=== PATIENT | male | born 1965 | race Caucasian/White ===

== ENCOUNTER 2016-05-06 04:21 | Emergency (ER) | payer MEDICARE ==
[2016-05-06 04:35] VITALS: PULSE 80
[2016-05-06] MEDS ORDERED: XYLOCAINE 1% HCL 20 ML MDV IJ ONE (04:40)
[2016-05-06] MEDS ORDERED: BACIGUENT PACKET TP ONE (04:40)
[2016-05-06] MEDS ORDERED: Zithromax 250 MG TABLET PO ONE (04:41)
[2016-05-06] MEDS ORDERED: BACIGUENT PACKET ONE (04:56)
[2016-05-06] MEDS ORDERED: Zithromax 250 MG TABLET ONE (04:56)
[2016-05-06] MEDS ORDERED: XYLOCAINE 1% HCL 20 ML MDV ONE (04:57)
[2016-05-06 05:32] VITALS: BP 146/102
--- NOTE | 2016-05-06 05:33 | ERPHSYRPT ---
- History of Present Illness Time Seen by Provider: 05/06/16 04:38 Source: patient Exam Limitations: no limitations Patient Subjective Stated Complaint: PT STS DRINKING ALCOHOL TONIGHT. PT STS STOOD UP FROM FLOOR WHERE HE WAS "EPOXYING SOME GIRLS GLASSES" STS HE STRUCK HIS HEAD ON FILING CABINET. STS HE CUT HIS LT EARLOBE ON FILING CABINET. DENIES LOC. Triage Nursing Assessment: PT ALERT, ORIENTED, ANSWERS ALL QUESTIONS APPROPRIATELY. SKIN P/W/D, RESPS NON-LABORED. PT AMBULATORY, STEADY GAIT NOTED. LACERATION NOTED TO LT EARLOBE WITH ACTIVE OOZING BLOOD NOTED. Physician History: ABOUT 45 MINUTES AGO PT STOOD UP AND CUT HIS LEFT EARLOBE ON A FILING CABINET; DENIES LOC, VOMITING, HEADACHE, CHEST PAIN, BACK PAIN, NECK PAIN, ABDOMINAL PAIN , TINGLING/NUMBNESS, WEAKNESS. LAST TETANUS IS WITHIN 5 YEARS. Allergies/Adverse Reactions: Penicillins Allergy (Verified 05/06/16 04:24) Home Medications: Aspirin [Analgesic] 325 mg PO DAILY 11/15/11 [History] Carvedilol 3.125 mg [Coreg 3.125 MG] 6.25 mg PO BID 11/15/11 [History] Clopidogrel Bisulfate 75 mg [PLAVIX 75 MG Tablet] 75 mg PO DAILY 11/15/11 [History] Lisinopril 20 mg PO DAILY 11/15/11 [History] Atorvastatin Calcium 20 mg PO HS 05/31/13 [History] Hx Tetanus, Diphtheria Vaccination/Date Given: Yes (unknown) Hx Influenza Vaccination/Date Given: No Hx Pneumococcal Vaccination/Date Given: No - Review of Systems Ears, Nose, & Throat: Other (LACERATION TO LEFT EARLOBE) All Other Systems: Reviewed and Negative - Past Medical History Pertinent Past Medical History: Yes Neurological History: No Pertinent History ENT History: No Pertinent History Cardiac History: Coronary Artery Disease, High Cholesterol, Hypertension Respiratory History: No Pertinent History Endocrine Medical History: No Pertinent History Musculoskeletal History: No Pertinent History GI Medical History: No Pertinent History History: No Pertinent History Psycho-Social History: Depression Male Reproductive Disorders: No Pertinent History Other Medical History: AICD. SUDDEN SYNDROME - Past Surgical History Past Surgical History: Yes Neuro Surgical History: No Pertinent History Cardiac: CABG, Cardiac Catheterization, Cardiac Stent, Internal Defibrillator, Pacemaker Respiratory: No Pertinent History Gastrointestinal: Hernia Repair Genitourinary: No Pertinent History Musculoskeletal: No Pertinent History Male Surgical History: No Pertinent History Other Surgical History: ATRIAL PACEMAKER/DEFIBRILLATOR - Social History Smoking Status: Current every day smoker How long have you smoked: 2 YEARS Exposure to second hand smoke: No Drug Use: none Patient Lives Alone: Yes - Nursing Vital Signs Nursing Vital Signs: Initial Vital Signs Temperature 97.6 F Temperature Source Oral Pulse Rate 80 Respiratory Rate 16 Blood Pressure [Right Arm] 135/77 Pain Intensity 0 - Physical Exam General Appearance: alert Eye Exam: PERRL/EOMI, eyes nml inspection Ears, Nose, Throat Exam: TMs normal, pharynx normal, moist mucous membranes, other (LEFT EARLOBE HAS A 3 CM LACERATION) Neck Exam: normal inspection, non-tender, full range of motion Respiratory Exam: lungs clear Cardiovascular Exam: normal heart sounds, normal peripheral pulses Gastrointestinal/Abdomen Exam: soft, normal bowel sounds Back Exam: normal range of motion Extremity Exam: normal inspection, No pedal edema Neurologic Exam: alert, cooperative SpO2 Interpretation: normal SpO2: 96 Oxygen Delivery: Room Air Procedures - Laceration/Wound Repair Left Ear Wound Location: Left (EARLOBE) Wound Length (cm): 3 Wound's Depth, Shape: linear (THROUGH & THROUGH) Wound Explored: clean Irrigated: Yes Hibiclens Prep: Yes Anesthesia: 1% Lidocaine Volume Anesthetic (ccs): 1.5 Wound Repaired With: sutures Suture Size/Type: 5-0, prolene Number of Sutures: 14 Layer Closure?: No Sterile Dressing Applied?: Yes - Course Nursing assessment & vital signs reviewed: Yes Ordered Tests: Active Orders 24 hr Category Date Time Status Prepare for Sutures STAT Care 05/06/16 04:40 Active Sutures STAT Care 05/06/16 04:41 Active Wound Care STAT Care 05/06/16 04:40 Active Medication Summary Discontinued Medications Generic Name Dose Route Start Last Admin Trade Name Sanjeev PRN Reason Stop Dose Admin Azithromycin 500 mg 05/06/16 04:41 05/06/16 04:59 Zithromax 250 Mg Tablet PO 05/06/16 04:42 500 mg STAT ONE Administration Azithromycin Confirm 05/06/16 04:56 Zithromax 250 Mg Tablet Administered 05/06/16 04:57 Dose 500 mg .ROUTE .STK-MED ONE Bacitracin 0.9 gm 05/06/16 04:40 05/06/16 04:59 Baciguent Packet TP 05/06/16 04:41 0.9 gm STAT ONE Administration Bacitracin Confirm 05/06/16 04:56 Baciguent Packet Administered 05/06/16 04:57 Dose 1 gm .ROUTE .STK-MED ONE Lidocaine HCl 5 ml 05/06/16 04:40 05/06/16 04:59 Xylocaine 1% Hcl 20 Ml Mdv IJ 05/06/16 04:41 5 ml STAT ONE Administration Lidocaine HCl Confirm 05/06/16 04:57 Xylocaine 1% Hcl 20 Ml Mdv Administered 05/06/16 04:58 Dose 1 ml .ROUTE .STK-MED ONE - Departure Time of Disposition: 05:38 Departure Disposition: Home Clinical Impression: 3 CM LACERATION TO LEFT EARLOBE Condition: Fair Critical Care Time: No Instructions: Care for a Laceration After Repair Additional Instructions: FOLLOW UP WITH PRIVATE DOCTOR TOMORROW. KEEP BANDAGE WRAPPED AROUND HEAD AND LEFT EAR FOR 48 HOURS. NEOSPORIN & BANDAGE DAILY FOR 10 DAYS. HAVE SUTURES REMOVED IN 10 DAYS. Prescriptions: Azithromycin 250 mg [Zithromax 250 MG TABLET] 250 mg PO ZPACK #6 tablet
[2016-05-06 05:34] VITALS: O2SAT 96
== END 2016-05-06 05:46 | disposition home or self-care (01) ==
LOC: ED 04:21
PROC: 0HQ3XZZ Repair Left Ear Skin, External Approach (ICD-10-PCS; principal; 2016-05-06)
DX: S01.312A Laceration without foreign body of left ear, initial encounter (principal); W22.03XA Walked into furniture, initial encounter
CPT/HCPCS: 12013; 99283

== ENCOUNTER 2018-02-09 11:00 | Emergency (ER) | payer MEDICARE ==
[2018-02-09 11:36] VITALS: O2SAT 98
[2018-02-09 11:42] LABS: BASOPHIL % 0.4 % (0.0-0.4); Basophil (Absolute #) 0.02 (0-0.4); Eosinophil % 8.3 % (0.00-5.0); Eosinophil (Absolute #) 0.42 (0-0.5); Granulocyte Absolute (ANC) 2.26 (1.4-6.9); Granulocytes % 44.7 % (36.0-66.0); Hematocrit 44.8 % (42-50); Hemoglobin 15.4 gm/dl (12.5-18.0); Lymphocyte (Absolute #) 1.96 (1.0-4.6); Lymphocytes % 38.7 % (24.0-44.0); Mean Cell Volume 102.3 fl (78-100); Mean Corpuscular Hemoglobin 35.2 pg (26-32); Mean Corpuscular Hgb Concent. 34.4 g/dl (32-36); Mean Platelet Volume 8.4 fl (6-9.5); Monocytes % 7.9 % (0.0-12.0); Platelet Count 186 K/mm3 (150-450); Red Blood Count 4.38 M/mm3 (4.1-5.6); Red Cell Distribution Width 12.5 % (11.5-14.0); White Blood Count 5.1 K/mm3 (4.0-10.5)
--- NOTE | 2018-02-09 11:55 | ERPHSYRPT ---
- History of Present Illness Time Seen by Provider: 02/09/18 11:30 Source: patient Exam Limitations: clinical condition Patient Subjective Stated Complaint: wants help with drinking.. wants to kill himself if he cant get help. does not have a plan. has hx of depression and previous suicide attempts Triage Nursing Assessment: alert and intoxicated.. came wanting help for drinking and depression.. states he wants to hurt himself but does not have a plan. has been drinking beer and vodka. has had previous attempts at suicide. has been hospitialized for depression. Physician History: PATIENT WITH A HISTORY OF CORONARY ARTERY DISEASE, HYPERTENSION COMPLAINS OF REQUESTING HELP FOR HIS CHRONIC ALCOHOL ABUSE, ASSOCIATED WITH DEPRESSION, ADMITS TO WANTING TO HARM HIMSELF IF HE DOES NOT GET HELP BY JUMPING OFF BRIDGE OR DRINKING HIMSELF TO . ADMITS TO DRINKING 35 BEERS DAILY. DENIES VISUAL OR AUDITORY HALLUCINATIONS. Timing/Duration: day(s) Severity of Symptoms-Max: none Severity of Symptoms-Current: none Context related to: living circumstances, other (DRINKING ALCOHOL) Suicidal thoughts: specific plan Associated Symptoms: depressed, suicidal ideation Previous symptoms: same symptoms as today (HOSPITALIZED FOR SUICIDAL IDEATIONS X 3 OCCASIONS) Allergies/Adverse Reactions: Penicillins Allergy (Verified 05/06/16 04:24) Home Medications: Aspirin [Analgesic] 325 mg PO DAILY 11/15/11 [History] Carvedilol 3.125 mg [Coreg 3.125 MG] 6.25 mg PO BID 11/15/11 [History] Clopidogrel Bisulfate 75 mg [PLAVIX 75 MG Tablet] 75 mg PO DAILY 11/15/11 [History] Lisinopril 20 mg PO DAILY 11/15/11 [History] Atorvastatin Calcium 20 mg PO HS 05/31/13 [History] Hx Tetanus, Diphtheria Vaccination/Date Given: Yes (unknown) Hx Influenza Vaccination/Date Given: No Hx Pneumococcal Vaccination/Date Given: No - Past Medical History Pertinent Past Medical History: Yes Neurological History: No Pertinent History ENT History: No Pertinent History Cardiac History: Coronary Artery Disease, High Cholesterol, Hypertension Respiratory History: No Pertinent History Endocrine Medical History: No Pertinent History Musculoskeletal History: No Pertinent History GI Medical History: No Pertinent History History: No Pertinent History Psycho-Social History: Depression Male Reproductive Disorders: No Pertinent History Other Medical History: AICD. SUDDEN SYNDROME - Past Surgical History Past Surgical History: Yes Neuro Surgical History: No Pertinent History Cardiac: CABG, Cardiac Catheterization, Cardiac Stent, Internal Defibrillator, Pacemaker Respiratory: No Pertinent History Gastrointestinal: Hernia Repair Genitourinary: No Pertinent History Musculoskeletal: No Pertinent History Male Surgical History: No Pertinent History Other Surgical History: ATRIAL PACEMAKER/DEFIBRILLATOR - Social History Smoking Status: Current every day smoker How long have you smoked: 2 YEARS Exposure to second hand smoke: No Drug Use: none Patient Lives Alone: No - Review of Systems Constitutional: No Fever, No Chills Eyes: No Symptoms Ears, Nose, & Throat: No Symptoms Respiratory: No Symptoms, No Cough, No Dyspnea Cardiac: No Symptoms, No Chest Pain, No Edema, No Syncope Abdominal/Gastrointestinal: No Symptoms, No Abdominal Pain, No Nausea, No Vomiting, No Diarrhea Genitourinary Symptoms: No Symptoms, No Dysuria Musculoskeletal: No Back Pain, No Neck Pain Skin: No Rash Neurological: No Dizziness, No Focal Weakness, No Sensory Changes Psychological: Alcohol Abuse, Depression, Suicidal Ideations Endocrine: No Symptoms All Other Systems: Reviewed and Negative - Nursing Vital Signs Nursing Vital Signs: Initial Vital Signs Temperature 98 F 02/09/18 11:17 Pulse Rate 77 02/09/18 11:17 Respiratory Rate 18 02/09/18 11:17 Blood Pressure 110/71 02/09/18 11:17 O2 Sat by Pulse Oximetry 98 02/09/18 11:17 Pain Scale Pain Intensity 0 - Physical Exam General Appearance: no apparent distress Eyes, Ears, Nose, Throat Exam: normal ENT inspection, moist mucous membranes Neck Exam: normal inspection, non-tender, supple Respiratory Exam: normal breath sounds, lungs clear, No respiratory distress Cardiovascular Exam: regular rate/rhythm, No edema Gastrointestinal/Abdominal Exam: soft, No tenderness, No distention Extremities Exam: normal inspection, normal range of motion, No evidence of injury, No edema Current Suicidality: denies suicide plan Neurological Exam: 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, 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 tested, oriented x 3 Behavior/Eye Contact/Speech: alert & cooperative, cooperative Thoughts/Hallucinations: normal thought pattern, no apparent hallucination, auditory hallucinations Skin Exam: normal color, warm, dry, No rash SpO2 Interpretation: normal SpO2: 98 Oxygen Delivery: Room Air Ordered Tests: Active Orders 24 hr Category Date Time Status CBC W DIFF Stat Lab 02/09/18 11:18 Completed CMP Stat Lab 02/09/18 11:18 Completed ETHYL ALCOHOL Stat Lab 02/09/18 11:18 Completed MAGNESIUM Stat Lab 02/09/18 Completed Urine Triage Profile Stat Lab 02/09/18 11:50 Completed Lab/Rad Data: Laboratory Result Diagrams 02/09/18 11:18 02/09/18 11:18 Laboratory Results 02/09/18 02/09/18 02/09/18 Range/Units Unknown 11:50 11:18 WBC (4.0-10.5) K/mm3 RBC (4.1-5.6) M/mm3 Hgb (12.5-18.0) gm/dl Hct (42-50) % MCV (78-100) fl MCH (26-32) pg MCHC (32-36) g/dl RDW (11.5-14.0) % Plt Count (150-450) K/mm3 MPV (6-9.5) fl Gran % (36.0-66.0) % Eos # (Auto) (0-0.5) Absolute Lymphs (auto) (1.0-4.6) Absolute Monos (auto) (0.0-1.3) Lymphocytes % (24.0-44.0) % Monocytes % (0.0-12.0) % Eosinophils % (0.00-5.0) % Basophils % (0.0-0.4) % Absolute Granulocytes (1.4-6.9) Basophils # (0-0.4) Sodium 144 (137-145) mmol/L Potassium 4.6 (3.5-5.1) mmol/L Chloride 105 (98-107) mmol/L Carbon Dioxide 25 (22-30) mmol/L Anion Gap 17.5 H (5-15) MEQ/L BUN 10 (9-20) mg/dL Creatinine 0.82 (0.66-1.25) mg/dL Estimated GFR > 60.0 ML/MIN Glucose 96 (74-106) mg/dL Calcium 9.4 (8.4-10.2) mg/dL Magnesium 2.4 H (1.6-2.3) mg/dL Total Bilirubin 0.50 (0.2-1.3) mg/dL AST 53 (17-59) U/L ALT 43 (0-50) U/L Alkaline Phosphatase 58 (38-126) U/L Serum Total Protein 8.2 (6.3-8.2) g/dL Albumin 5.2 H (3.5-5.0) g/dL Urine Opiates Level NEGATIVE (NEGATIVE) Ur Methadone NEGATIVE (NEGATIVE) Urine Barbiturates NEGATIVE (NEGATIVE) Ur Phencyclidine (PCP) NEGATIVE (NEGATIVE) Urine Amphetamine NEGATIVE (NEGATIVE) U Benzodiazepine Level NEGATIVE (NEGATIVE) Urine Cocaine NEGATIVE (NEGATIVE) Urine Marijuana (THC) NEGATIVE (NEGATIVE) Ethyl Alcohol 293 H (0-10) mg/dL 02/09/18 Range/Units 11:18 WBC 5.1 (4.0-10.5) K/mm3 RBC 4.38 (4.1-5.6) M/mm3 Hgb 15.4 (12.5-18.0) gm/dl Hct 44.8 (42-50) % MCV 102.3 H (78-100) fl MCH 35.2 H (26-32) pg MCHC 34.4 (32-36) g/dl RDW 12.5 (11.5-14.0) % Plt Count 186 (150-450) K/mm3 MPV 8.4 (6-9.5) fl Gran % 44.7 (36.0-66.0) % Eos # (Auto) 0.42 (0-0.5) Absolute Lymphs (auto) 1.96 (1.0-4.6) Absolute Monos (auto) 0.40 (0.0-1.3) Lymphocytes % 38.7 (24.0-44.0) % Monocytes % 7.9 (0.0-12.0) % Eosinophils % 8.3 H (0.00-5.0) % Basophils % 0.4 (0.0-0.4) % Absolute Granulocytes 2.26 (1.4-6.9) Basophils # 0.02 (0-0.4) Sodium (137-145) mmol/L Potassium (3.5-5.1) mmol/L Chloride (98-107) mmol/L Carbon Dioxide (22-30) mmol/L Anion Gap (5-15) MEQ/L BUN (9-20) mg/dL Creatinine (0.66-1.25) mg/dL Estimated GFR ML/MIN Glucose (74-106) mg/dL Calcium (8.4-10.2) mg/dL Magnesium (1.6-2.3) mg/dL Total Bilirubin (0.2-1.3) mg/dL AST (17-59) U/L ALT (0-50) U/L Alkaline Phosphatase (38-126) U/L Serum Total Protein (6.3-8.2) g/dL Albumin (3.5-5.0) g/dL Urine Opiates Level (NEGATIVE) Ur Methadone (NEGATIVE) Urine Barbiturates (NEGATIVE) Ur Phencyclidine (PCP) (NEGATIVE) Urine Amphetamine (NEGATIVE) U Benzodiazepine Level (NEGATIVE) Urine Cocaine (NEGATIVE) Urine Marijuana (THC) (NEGATIVE) Ethyl Alcohol (0-10) mg/dL - Progress Progress Note: 02/09/18 12:58 ALERT AND APPROPRIATE, IV HYDRATION NORMAL SALINE 250ML/HR Discussed with Dr.: Other (DISCUSSED WITH DR LAURENT ACCEPTS TO [facility] VIA BLS EMS) Counseled pt/family regarding: lab results, diagnosis, need for follow-up - Departure Time of Disposition: 14:15 Departure Disposition: Transfer Clinical Impression: SUICIDAL IDEATION, ALCOHOL INTOXICATION Condition: Stable Critical Care Time: No Referrals: JUDTIH OSEGUERA [COURTESY STAFF] -
[2018-02-09 12:12] LABS: ALBUMIN 5.2 g/dL (3.5-5.0); ALKALINE PHOSPHATASE 58 U/L (38-126); ANION GAP 17.5 MEQ/L (5-15); BLOOD UREA NITROGEN 10 mg/dL (9-20); CHLORIDE 105 mmol/L (98-107); Calcium 9.4 mg/dL (8.4-10.2); Carbon Dioxide 25 mmol/L (22-30); Creatinine 1 0.82 mg/dL (0.66-1.25); ETHYL ALCOHOL 293 mg/dL (0-10); Glucose 96 mg/dL (74-106); Potassium 4.6 mmol/L (3.5-5.1); SGOT/AST 53 U/L (17-59); SGPT/ALT 43 U/L (0-50); SODIUM 144 mmol/L (137-145); Total Protein 8.2 g/dL (6.3-8.2)
[2018-02-09 12:48] LABS: Amphetamine,Urine NEGATIVE (NEGATIVE); Barbiturate,Urine NEGATIVE (NEGATIVE); Benzodiazepine,Urine NEGATIVE (NEGATIVE); Cocaine,Urine NEGATIVE (NEGATIVE); Methadone,Urine NEGATIVE (NEGATIVE); Opiate,Urine NEGATIVE (NEGATIVE); THC,Urine NEGATIVE (NEGATIVE)
[2018-02-09 12:51] LABS: PCP,Urine NEGATIVE (NEGATIVE)
[2018-02-09 14:14] VITALS: BP 107/70; PULSE 70
== END 2018-02-09 15:00 | disposition short-term general hospital (02) ==
LOC: ED 11:00
DX: R45.851 Suicidal ideations (principal); F10.129 Alcohol abuse with intoxication, unspecified
CPT/HCPCS: 36415; 80053; 80307; 83735; 85025; 99284; G0480

== ENCOUNTER 2020-02-05 09:07 | Day surgery (SDC) | payer MEDICARE ==
--- NOTE | 2020-02-05 08:53 | HP ---
DATE OF SURGERY: 02/05/2020 HISTORY OF PRESENT ILLNESS: The patient is a 54 year old bulge left inguinal area now increased discomfort. It has been going on for a little while. He had a prior right inguinal hernia repair. He has not had any problems with that repair in the past. PAST MEDICAL HISTORY: Hyperlipidemia, heart disease. PAST SURGICAL HISTORY: Back in 2010 he had a right inguinal hernia repair. He said he had a coronary artery bypass graft in 2009. MEDICATIONS: Coreg, atorvastatin. ALLERGIES: PENICILLINS. FAMILY HISTORY: Heart disease. SOCIAL HISTORY: History of smoking, denies alcohol abuse. REVIEW OF SYSTEMS: Fourteen systems reviewed. No chest pain or palpitations. Other systems negative or noncontributory as above and per preadmission questionnaire. PHYSICAL EXAMINATION: GENERAL: No acute distress. HEENT: Sclerae nonicteric. NECK: No JVD. CHEST: Equal excursion, nonlabored breathing. CVS: Regular rate and rhythm. ABDOMEN: Soft. He had left inguinal hernia on exam. No evidence of recurrence on the right at this time. No peritoneal signs. EXTREMITIES: No significant edema. NEURO: Alert, oriented, moving extremities symmetrically. No gross motor deficits noted. PSYCH: Appropriate mood and affect. IMPRESSION: Symptomatic left inguinal hernia. I feel the patient would benefit from repair. He was discussed the options of laparoscopic versus open. As he had good results with the open repair on the right before, he prefers to go ahead and proceed with open repair left inguinal hernia with mesh as an outpatient. 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 He understands general risk of chronic aches, pains burning, numbness, risk of sensory nerve irritation, scar formation or injury could be up to 10 to 12%, possibly interfering with sexual function from the aches and pain standpoint. He understands all the above but not limited to. He agrees to the planned procedure. He needs to hold his blood thinners perioperatively, will proceed with open repair left inguinal hernia with mesh as an outpatient.
[~2020-02-05 09:07] MED LIST: CLINDAMYCIN-D5W 900 MG/50 ML*** 900 MG/50 ML BAG IV STA; Lactated Ringers 1,000 ML IV SCH; Sensorcaine 0.25% 10 ML ONE
[2020-02-05] MEDS ORDERED: CLINDAMYCIN-D5W 900 MG/50 ML*** 900 MG/50 ML BAG IV ONE (09:14)
[2020-02-05] MEDS ORDERED: Lactated Ringers 1,000 ML IV ONE ×2 (09:14→09:41)
[2020-02-05] MEDS ORDERED: SUBLIMAZE 250 MCG/5 ML ONE (10:26)
[2020-02-05] MEDS ORDERED: Versed 2 MG/2 ML Injection ONE (10:26)
[2020-02-05] MEDS ORDERED: DIPRIVAN 200 MG/20 ML IV ONE (10:26)
[2020-02-05 11:22] LABS: ALBUMIN 4.4 g/dL (3.5-5.0); ALKALINE PHOSPHATASE 51 U/L (38-126); ANION GAP 6.6 MEQ/L (5-15); BLOOD UREA NITROGEN 14 mg/dL (9-20); CHLORIDE 105 mmol/L (98-107); Calcium 9.7 mg/dL (8.4-10.2); Carbon Dioxide 29 mmol/L (22-30); Creatinine 1 0.93 mg/dL (0.66-1.25); EST GLOMERULAR FILTRATION RATE > 60.0 ML/MIN; Glucose 109 mg/dL (74-106); Potassium 4.8 mmol/L (3.5-5.1); SGOT/AST 23 U/L (17-59); SGPT/ALT 12 U/L (0-50); SODIUM 136 mmol/L (137-145); Total Protein 6.9 g/dL (6.3-8.2)
[2020-02-05] MEDS ORDERED: Marcaine 0.5%/Epinephrine 10 ML ONE (12:03)
[2020-02-05] MEDS ORDERED: MORPHINE SULFATE 10 MG/ML ONE (13:00)
[2020-02-05] MEDS ORDERED: SUBLIMAZE 100 MCG/2 ML ONE (13:00)
[2020-02-05] MEDS ORDERED: NORCO 5/325 MG PO PRN (13:59)
[2020-02-05 14:39] VITALS: BP 129/81; PULSE 60; O2SAT 98
--- NOTE | 2020-02-06 11:04 | OP ---
SURGERY DATE/TIME: 02/05/2020 1123 PREOPERATIVE DIAGNOSIS: Symptomatic left inguinal hernia. POSTOPERATIVE DIAGNOSIS: Symptomatic left inguinal hernia. PROCEDURE: Open repair of left inguinal hernia with mesh. SURGEON: Dr. Tae Vega. ANESTHESIA: General. ESTIMATED BLOOD LOSS: Minimal. INDICATIONS: As noted above. Risks and benefits explained in detail and not limited to and consent was obtained. The site was marked in the preoperative holding area and confirmed location. DESCRIPTION OF PROCEDURE AND FINDINGS: The patient is taken to the operating room. General anesthesia induced. Abdomen and groin are prepped and draped in sterile fashion. After official time out and no disagreement with planned procedure, a transverse incision made left inguinal area. Dissection carried down through Sb fascia to the external oblique towards the direction of its fibers towards the external ring. The visible ilioinguinal and iliohypogastric nerve is carefully protected. The cord gently mobilized up off the pubic tubercle with a Saran drain. The patient noted to have direct hernia component, had very small indirect component and had a cord lipoma out laterally. Cremasteric fibers carefully . Cord lipoma dissected out laterally and was carefully high ligated and suture ligated with 3-0 Vicryl suture ligature and passed off. The small indirect hernia sac was carefully isolated away from the cord vessels and vas and ligated with PDS suture. The main portion of this hernia was a direct component had a very moderately large direct hernia component this was imbricated downwards with the transversalis closed back to itself with running 0 PDS closing this direct hernia. It was felt he would benefit from mesh repair. A 2 x 4 piece of mesh cut to appropriate dimension with keyhole cut secured to the fascia along the pubic tubercle with 0 Prolene run along Calos's ligament along the shelving portion of the inguinal ligament and laterally past the internal ring with 0 Prolene. 0 Prolene used to transfix to the rectus fascia medially and 0 Vicryl used to transfix it to the aponeurosis and internal oblique superiorly. The keyholes had been cut. The tails of the mesh were tacked together laterally with 0 Prolene. The new internal ring was felt to be not too tight lying nice and flat in tension-free manner. Good hemostasis noted. External oblique closed with 0 Vicryl. Sb closed with 3-0 Vicryl. Subcu closed with 3-0 Vicryl. Skin closed with 4-0 Vicryl. Steri-Strips and sterile dressings applied. 0.25% Marcaine had been injected along the skin incision back towards the origin of the ilioinguinal nerve back towards the iliac spine. The patient tolerated the procedure well. There were no immediate complications. There was no family available to discuss the findings with out in the waiting room.
== END 2020-02-05 14:25 | disposition home or self-care (01) ==
LOC: SDC 09:07
PROVIDERS: ATTEND Surgery
DX: K40.90 Unilateral inguinal hernia, without obstruction or gangrene, not specified as recurrent (principal); E78.5 Hyperlipidemia, unspecified; I51.9 Heart disease, unspecified; Z79.899 Other long term (current) drug therapy
CPT/HCPCS: 36415; 49505; 64486; 76937; 76942; 80053; 93005; C1781; 88302; J2250; J2270; J2704; J3010; A9270-GY

== ENCOUNTER 2020-06-02 10:43 | Observation (INO) | payer MEDICARE ==
[2020-06-02] MEDS ORDERED: Sodium Chloride 0.9% 1000 ML 1,000 ML IV STA (10:56)
[2020-06-02] MEDS ORDERED: Sodium Chloride 0.9% 1000 ML 1,000 ML ONE (11:05)
[2020-06-02 11:36] LABS: Absolute Neutrophil Ct (ANC) 8.15 (1.4-6.9); BASOPHIL % 0.1 % (0.0-0.4); Basophil (Absolute #) 0.01 (0-0.4); Eosinophil % 1.4 % (0.00-5.0); Eosinophil (Absolute #) 0.15 (0-0.5); Hematocrit 42.2 % (42-50); Hemoglobin 14.3 gm/dl (12.5-18.0); Lymphocytes % 11.4 % (24.0-44.0); Mean Cell Volume 99.8 fl (78-100); Mean Corpuscular Hemoglobin 33.8 pg (26-32); Mean Corpuscular Hgb Concent. 33.9 g/dl (32-36); Mean Platelet Volume 8.5 fl (7.5-11.0); Monocyte (Absolute #) 1.01 (0.0-1.3); Monocytes % 9.6 % (0.0-12.0); Neutrophil % 77.5 % (36.0-66.0); Platelet Count 195 K/mm3 (150-450); Red Blood Count 4.23 M/mm3 (4.1-5.6); Red Cell Distribution Width 12.1 % (11.5-14.0); White Blood Count 10.5 K/mm3 (4.0-10.5)
[2020-06-02 11:42] LABS: PROTIME 11.3 SECONDS (8.83-12.87)
--- NOTE | 2020-06-02 12:09 | ERPHSYRPT ---
- History of Present Illness Time Seen by Provider: 06/02/20 10:55 Source: patient Exam Limitations: no limitations Patient Subjective Stated Complaint: cough, chills, SOB Triage Nursing Assessment: pt to ED c/o cough, chills, SOB, bodyaches x 3 days and one episode diarrhea. states some chest pain with coughing /10. pt states he has felt progressively worse last couple days. reports waking up saturated in sweat but has not recorded a temperature. lungs clear at tops but coarse crackles in lower lobes bilaterally. pt denies COVID exposure to his knowledge but cant say for sure. Physician History: Patient is a 55-year-old white male who presents with a complaint of cough for 3 days getting worse also complains of weakness he complains of low-grade fever he says it is a hacking cough which prevents him sleeping. He also says the cough causes him to nearly vomit. He has had night sweats for the last 2-3 nights. He feels that he has no appetite he has body aches joint pains one episode of diarrhea and no appetite. He is a heart patient has had bypass grafting stents and ICD and also continues to smoke. Timing/Duration: day(s) (3) Activities at Onset: none Severity of Dyspnea-Max: mild Severity of Dyspnea-Current: mild Possible Cause: occasional episodes Modifying Factors: Improves With: coughing, lying down Associated Symptoms: cough, chest pain/discomfort, fever, insomnia, loss of appetite, lightheadedness, wheezing, sweating Allergies/Adverse Reactions: Penicillins Allergy (Verified 06/02/20 10:58) Home Medications: Aspirin [Analgesic] 325 mg PO DAILY 11/15/11 [History] Carvedilol 3.125 mg [Coreg 3.125 MG] 6.25 mg PO BID 11/15/11 [History] Clopidogrel Bisulfate 75 mg [PLAVIX 75 MG Tablet] 75 mg PO DAILY 11/15/11 [History] Rosuvastatin Calcium [Crestor] 5 mg PO DAILY 06/02/20 [History] Hx Tetanus, Diphtheria Vaccination/Date Given: No (unknown) Hx Influenza Vaccination/Date Given: No Hx Pneumococcal Vaccination/Date Given: No Travel Risk - International Travel Have you traveled outside of the country in past 3 weeks: No - Coronavirus Screening Are you exhibiting any of the following symptoms?: Yes Symptoms: Cough: New Onset, Shortness of Breath, Headaches/Body Aches/Fatigue Close contact with a COVID-19 positive Pt in past 14-21 Days: No - Review of Systems Constitutional: Fever, Chills, Night Sweats, Weakness Eyes: No Symptoms Ears, Nose, & Throat: Painful Swallowing Respiratory: Cough, Dyspnea, Wheezing Cardiac: Chest Pain, No Edema, No Syncope Abdominal/Gastrointestinal: Nausea, Diarrhea, No Abdominal Pain, No Vomiting Genitourinary Symptoms: No Dysuria Musculoskeletal: Arthralgias, Myalgias, No Back Pain, No Neck Pain Skin: No Symptoms, No Rash Neurological: No Dizziness, No Focal Weakness, No Sensory Changes Psychological: No Symptoms Endocrine: No Symptoms All Other Systems: Reviewed and Negative - Past Medical History Pertinent Past Medical History: Yes Neurological History: No Pertinent History ENT History: No Pertinent History Cardiac History: Coronary Artery Disease, High Cholesterol, Hypertension, Myocardial Infarction ([place]) Respiratory History: No Pertinent History Endocrine Medical History: No Pertinent History Musculoskeletal History: No Pertinent History GI Medical History: No Pertinent History History: No Pertinent History Psycho-Social History: Depression Male Reproductive Disorders: No Pertinent History Other Medical History: AICD - Past Surgical History Past Surgical History: Yes Neuro Surgical History: No Pertinent History Cardiac: CABG, Cardiac Catheterization, Cardiac Stent, Internal Defibrillator, Pacemaker Respiratory: No Pertinent History Gastrointestinal: Hernia Repair Genitourinary: No Pertinent History Musculoskeletal: No Pertinent History Male Surgical History: No Pertinent History Other Surgical History: ATRIAL PACEMAKER/DEFIBRILLATOR - Social History Smoking Status: Current every day smoker How long have you smoked: years Exposure to second hand smoke: No Drug Use: none Patient Lives Alone: No - Nursing Vital Signs Nursing Vital Signs: Initial Vital Signs Temperature 99.2 F 06/02/20 10:49 Pulse Rate 66 06/02/20 10:49 Respiratory Rate 18 06/02/20 10:49 Blood Pressure 131/89 06/02/20 10:49 O2 Sat by Pulse Oximetry 96 06/02/20 10:49 Pain Scale Pain Intensity 5 - Physical Exam General Appearance: moderate distress, alert Eye Exam: PERRL/EOMI Neck Exam: normal inspection, supple Respiratory Exam: diminished breath sounds, prolonged expirations, crac kles/rales, rhonchi, wheezing Cardiovascular/Chest Exam: normal heart sounds, regular rate/rhythm Abdominal/Gastrointestinal Exam: soft, No tenderness, No distention, No mass Extremity Exam: non-tender, normal range of motion, normal inspection, no calf tenderness, no pedal edema Neurologic Exam: alert, oriented x 3, cooperative, framing machine tender II-XII nml as tested, sensation nml, No motor deficits Skin Exam: normal color, warm, No dry SpO2 Interpretation: normal SpO2: 97 O2 Delivery: Room Air - Course Nursing assessment & vital signs reviewed: Yes EKG Interpreted by Me: RATE (81), NORMAL AXIS, NORMAL INTERVALS, NORMAL QRS, NORMAL ST-T - Radiology Exams Chest X-ray Interpretation: Interpreted by me, Other (Right lung opacities) - CT Exams Chest CT Interpretation: Tele-radiologist Report Ordered Tests: Active Orders 24 hr Category Date Time Status EKG-ER Only STAT Care 06/02/20 10:56 Active IV Insertion STAT Care 06/02/20 10:56 Active CHEST 1 VIEW (PORTABLE) Stat Exams 06/02/20 10:57 Taken CHEST WITH CONTRAST [CT] Stat Exams 06/02/20 11:52 Taken BLOOD CULTURE Stat Lab 06/02/20 11:30 Received CBC W DIFF Stat Lab 06/02/20 11:30 Completed CMP Stat Lab 06/02/20 11:30 Completed CULTURE,SPUTUM Stat Lab 06/02/20 11:30 Received D-DIMER QUANTITATIVE Stat Lab 06/02/20 11:30 Completed LDH-LACTATE DEHYDROGENASE Stat Lab 06/02/20 11:30 Completed Lactic Acid Stat Lab 06/02/20 11:10 Completed PROCALCITONIN Stat Lab 06/02/20 11:30 Completed PROTIME WITH INR Stat Lab 06/02/20 11:30 Completed TROPONIN Q3H Lab 06/02/20 11:30 Completed TROPONIN Q3H Lab 06/02/20 14:15 Ordered TROPONIN Q3H Lab 06/02/20 17:15 Ordered TROPONIN Q3H Lab 06/02/20 20:15 Ordered TROPONIN Q3H Lab 06/02/20 23:15 Ordered Medication Summary Generic Name Dose Route Start Last Admin Trade Name Freq PRN Reason Stop Dose Admin Ceftriaxone Sodium/Dextrose 1 g in 50 mls @ 100 mls/hr 06/02/20 14:14 Rocephin 1 Gm-D5w 50 Ml Bag IV 06/02/20 14:43 STAT STA Discontinued Medications Generic Name Dose Route Start Last Admin Trade Name Sanjeev PRN Reason Stop Dose Admin Sodium Chloride 1,000 mls @ 999 mls/hr 06/02/20 10:56 06/02/20 12:11 Sodium Chloride 0.9% 1000 Ml IV 06/02/20 11:56 Infused .Q1H1M STA Infusion Sodium Chloride Confirm 06/02/20 11:05 Sodium Chloride 0.9% 1000 Ml Administered 06/02/20 11:06 Dose 1,000 mls @ ud .ROUTE .[facility] Lab/Rad Data: Laboratory Result Diagrams 06/02/20 11:30 06/02/20 11:30 Laboratory Results 06/02/20 06/02/20 06/02/20 Range/Units 11:30 11:30 11:30 WBC (4.0-10.5) K/mm3 RBC (4.1-5.6) M/mm3 Hgb (12.5-18.0) gm/dl Hct (42-50) % MCV (78-100) fl MCH (26-32) pg MCHC (32-36) g/dl RDW (11.5-14.0) % Plt Count (150-450) K/mm3 MPV (7.5-11.0) fl Gran % (36.0-66.0) % Eos # (Auto) (0-0.5) Absolute Lymphs (auto) (1.0-4.6) Absolute Monos (auto) (0.0-1.3) Lymphocytes % (24.0-44.0) % Monocytes % (0.0-12.0) % Eosinophils % (0.00-5.0) % Basophils % (0.0-0.4) % Absolute Granulocytes (1.4-6.9) Basophils # (0-0.4) PT 11.3 (8.83-12.87) SECONDS INR 1.00 (0.8-3.0) D-Dimer 464 (215-500) ng/mL Sodium (137-145) mmol/L Potassium (3.5-5.1) mmol/L Chloride (98-107) mmol/L Carbon Dioxide (22-30) mmol/L Anion Gap (5-15) MEQ/L BUN (9-20) mg/dL Creatinine (0.66-1.25) mg/dL Estimated GFR ML/MIN Glucose (74-106) mg/dL Lactic Acid (0.4-2.0) Calcium (8.4-10.2) mg/dL Total Bilirubin (0.2-1.3) mg/dL AST (17-59) U/L ALT (0-50) U/L Alkaline Phosphatase (38-126) U/L Lactate Dehydrogenase (120-246) U/L Troponin I < 0.012 (0.000-0.034) ng/mL Serum Total Protein (6.3-8.2) g/dL Albumin (3.5-5.0) g/dL Procalcitonin (0.030-0.080) ng/mL Influenza Type A Ag NEGATIVE (NEGATIVE) Influenza Type B Ag NEGATIVE (NEGATIVE) RSV (PCR) NEGATIVE (Negative) SARS-CoV-2 (PCR) NEGATIVE (NEGATIVE) 06/02/20 06/02/20 06/02/20 Range/Units 11:30 11:30 11:10 WBC 10.5 (4.0-10.5) K/mm3 RBC 4.23 (4.1-5.6) M/mm3 Hgb 14.3 (12.5-18.0) gm/dl Hct 42.2 (42-50) % MCV 99.8 (78-100) fl MCH 33.8 H (26-32) pg MCHC 33.9 (32-36) g/dl RDW 12.1 (11.5-14.0) % Plt Count 195 (150-450) K/mm3 MPV 8.5 (7.5-11.0) fl Gran % 77.5 H (36.0-66.0) % Eos # (Auto) 0.15 (0-0.5) Absolute Lymphs (auto) 1.20 (1.0-4.6) Absolute Monos (auto) 1.01 (0.0-1.3) Lymphocytes % 11.4 L (24.0-44.0) % Monocytes % 9.6 (0.0-12.0) % Eosinophils % 1.4 (0.00-5.0) % Basophils % 0.1 (0.0-0.4) % Absolute Granulocytes 8.15 H (1.4-6.9) Basophils # 0.01 (0-0.4) PT (8.83-12.87) SECONDS INR (0.8-3.0) D-Dimer (215-500) ng/mL Sodium 130 L (137-145) mmol/L Potassium 4.5 (3.5-5.1) mmol/L Chloride 97 L (98-107) mmol/L Carbon Dioxide 25 (22-30) mmol/L Anion Gap 13.2 (5-15) MEQ/L BUN 11 (9-20) mg/dL Creatinine 0.81 (0.66-1.25) mg/dL Estimated GFR > 60.0 ML/MIN Glucose 124 H (74-106) mg/dL Lactic Acid 1.0 (0.4-2.0) Calcium 10.1 (8.4-10.2) mg/dL Total Bilirubin 0.90 (0.2-1.3) mg/dL AST 32 (17-59) U/L ALT 16 (0-50) U/L Alkaline Phosphatase 70 (38-126) U/L Lactate Dehydrogenase 166 (120-246) U/L Troponin I (0.000-0.034) ng/mL Serum Total Protein 7.9 (6.3-8.2) g/dL Albumin 4.6 (3.5-5.0) g/dL Procalcitonin 0.138 H (0.030-0.080) ng/mL Influenza Type A Ag (NEGATIVE) Influenza Type B Ag (NEGATIVE) RSV (PCR) (Negative) SARS-CoV-2 (PCR) (NEGATIVE) - Progress Progress: improved Air Movement: good Blood Culture(s) Obtained: Yes Antibiotics given: Yes Discussed with : Pratibha Will see patient in: hospital (observation) - Departure Departure Disposition: Observation Clinical Impression: Pneumonia Condition: Stable Critical Care Time: No Referrals: JUDITH OSEGUERA [Primary Care Provider] - Instructions: Pneumonia, Adult (DC)
[2020-06-02 12:13] LABS: ALBUMIN 4.6 g/dL (3.5-5.0); ALKALINE PHOSPHATASE 70 U/L (38-126); ANION GAP 13.2 MEQ/L (5-15); BLOOD UREA NITROGEN 11 mg/dL (9-20); CHLORIDE 97 mmol/L (98-107); Calcium 10.1 mg/dL (8.4-10.2); Carbon Dioxide 25 mmol/L (22-30); Creatinine 1 0.81 mg/dL (0.66-1.25); EST GLOMERULAR FILTRATION RATE > 60.0 ML/MIN; Glucose 124 mg/dL (74-106); LDH-LACTATE DEHYDROGENASE 166 U/L (120-246); Potassium 4.5 mmol/L (3.5-5.1); SGOT/AST 32 U/L (17-59); SGPT/ALT 16 U/L (0-50); SODIUM 130 mmol/L (137-145); Total Protein 7.9 g/dL (6.3-8.2)
[2020-06-02 12:31] LABS: INFLUENZA A NEGATIVE (NEGATIVE); INFLUENZA B NEGATIVE (NEGATIVE); RESPIRATORY SYNCTIAL VIRUS NEGATIVE (Negative)
[2020-06-02] MEDS ORDERED: ROCEPHIN 1 Gm-D5w 50 ml Bag** 1 G/50 ML IVPB IV STA (14:14)
[2020-06-02] MEDS ORDERED: ROCEPHIN 1 Gm-D5w 50 ml Bag** 1 G/50 ML IVPB IV ONE (14:18)
[2020-06-02 14:27] LABS: Appearance CLEAR (CLEAR); Bilirubin NEGATIVE (NEGATIVE); Blood SMALL Ery/ul (0-5); Glucose NEGATIVE (NEGATIVE); Ketones TRACE (NEGATIVE); Leukocyte Esterase NEGATIVE (NEGATIVE); Nitrite NEGATIVE (NEGATIVE); Protein,Urine Dip NEGATIVE (Negative); Specific Gravity 1.006 (1.005-1.025); Urobilinogen NEGATIVE mg/dL (0-1)
[2020-06-02] MEDS: Sodium Chloride 0.9% 1000 ML 1,000 ML IV SCH ×2 (15:45→23:20)
[2020-06-02] MEDS: DUONEB 0.5-3 MG/3 ml Neb IH PRN (20:06)
--- NOTE | 2020-06-02 20:13 | XRAY ---
Indication: Cough. Multiple contiguous axial images obtained through the chest using 80 cc Isovue 370 contrast and PE protocol. Comparison: None There is satisfactory opacification of the pulmonary arteries to include the lobar and segmental branches. No pulmonary embolus. Heart is not enlarged and demonstrates CABG surgery and left AICD. Aorta is normal course and caliber. No pathologic mediastinal/hilar lymphadenopathy. Lungs are hyperinflated and demonstrates patchy right middle and inferior right upper lobe airspace disease. No consolidation or effusion. Bony thorax intact with minimal degenerative changes throughout the spine. Limited upper abdomen including adrenal glands are unremarkable. Impression: 1. Negative pulmonary embolus. 2. Right upper and right middle lobe patchy airspace disease. Comment: Preliminary interpretation was made by [facility]. No critical discrepancy.
--- NOTE | 2020-06-02 20:15 | XRAY ---
Indication: Cough. Comparison: February 07, 2016. Portable chest demonstrates CT proven subtle right upper and right middle lobe patchy airspace disease. Remaining heart, lungs, and bony thorax unremarkable again with incidental CABG and left AICD.
[2020-06-02] MEDS: MAG-OX 400 PO SCH (21:07)
[2020-06-02] MEDS: Ecotrin 325 MG PO SCH (21:07)
[2020-06-02] MEDS: Coreg 6.25 MG PO SCH (21:07)
[2020-06-02] MEDS: Zocor 10MG PO SCH (21:07)
[2020-06-02] MEDS ORDERED: MAGNESIUM OXIDE 500 MG PO SCH (22:00)
[2020-06-02] MEDS ORDERED: NON-FORMULARY ITEM (Rosuvastatin Calcium [Crestor] 5 MG) PO SCH (22:00)
[2020-06-02] MEDS ORDERED: ASPIRIN 325 MG PO SCH (22:00)
[2020-06-02] MEDS ORDERED: Coreg 3.125 MG PO SCH (22:00)
[2020-06-03] MEDS: TYLENOL 325 MG PO PRN ×3 (02:39→23:01)
[2020-06-03 05:27] LABS: Hematocrit 40.9 % (42-50); Hemoglobin 13.3 gm/dl (12.5-18.0); Mean Corpuscular Hemoglobin 33.5 pg (26-32); Mean Corpuscular Hgb Concent. 32.5 g/dl (32-36); Mean Platelet Volume 8.8 fl (7.5-11.0); Platelet Count 191 K/mm3 (150-450); Red Blood Count 3.97 M/mm3 (4.1-5.6); Red Cell Distribution Width 12.2 % (11.5-14.0); White Blood Count 8.3 K/mm3 (4.0-10.5)
[2020-06-03 05:34] LABS: ALBUMIN 3.6 g/dL (3.5-5.0); ALKALINE PHOSPHATASE 52 U/L (38-126); ANION GAP 7.5 MEQ/L (5-15); BLOOD UREA NITROGEN 10 mg/dL (9-20); CHLORIDE 102 mmol/L (98-107); Calcium 9.2 mg/dL (8.4-10.2); Carbon Dioxide 29 mmol/L (22-30); Creatinine 1 0.87 mg/dL (0.66-1.25); EST GLOMERULAR FILTRATION RATE > 60.0 ML/MIN; Glucose 111 mg/dL (74-106); Potassium 5.2 mmol/L (3.5-5.1); SGOT/AST 24 U/L (17-59); SGPT/ALT 12 U/L (0-50); SODIUM 133 mmol/L (137-145); Total Protein 6.6 g/dL (6.3-8.2)
[2020-06-03] MEDS: Sodium Chloride 0.9% 1000 ML 1,000 ML IV SCH ×3 (07:59→23:06)
[2020-06-03] MEDS: Coreg 6.25 MG PO SCH ×2 (09:30→23:00)
[2020-06-03] MEDS: MAG-OX 400 PO SCH ×2 (09:30→23:01)
[2020-06-03] MEDS: ROCEPHIN 1 Gm-D5w 50 ml Bag** 1 G/50 ML IVPB IV SCH (09:30)
[2020-06-03] MEDS: PLAVIX 75 MG Tablet PO SCH (09:30)
[2020-06-03] MEDS: Zithromax 500 MG/ 250 ML NaCl Premix 500 MG/250 ML IVPB IV SCH (09:31)
--- NOTE | 2020-06-03 17:46 | PCM.HP ---
History of Present Illness - Chief Complaint Chief Complaint: shortness of breath for 1 day History of Present Illness: is a 55 year old white male who presents with a complaint of cough for 3 days getting worse also complains of weakness he complains of low-grade fever he says it is a hacking cough which prevents him sleeping. He also says the cough causes him to nearly vomit. He has had night sweats for the last 2-3 nights. He feels that he has no appetite he has body aches joint pains one episode of diarrhea and no appetite. He is a heart patient has had bypass grafting stents and ICD and also continues to smoke. Timing/Duration: day(s) (3) Activities at Onset: none Severity of Dyspnea-Max: mild Severity of Dyspnea-Current: mild Possible Cause: occasional episodes Modifying Factors: Improves With: coughing, lying down Associated Symptoms: cough, chest pain/discomfort, fever, insomnia, loss of appetite, lightheadedness, wheezing, sweating - Review of Systems Constitutional: Fever, No Chills Eyes: No Symptoms Ears, Nose, & Throat: No Symptoms Respiratory: Cough, Short Of Breath Cardiac: No Chest Pain, No Edema, No Syncope Abdominal/Gastrointestinal: No Abdominal Pain, No Nausea, No Vomiting, No Diarrhea Genitourinary Symptoms: No Dysuria Musculoskeletal: No Back Pain, No Neck Pain Skin: No Rash Neurological: No Dizziness, No Focal Weakness, No Sensory Changes Psychological: No Symptoms Endocrine: No Symptoms Hematologic/Lymphatic: No Symptoms Immunological/Allergic: No Symptoms Medications & Allergies Home Medications: Home Medication List Aspirin [Analgesic] 325 mg PO HS 11/15/11 [History Confirmed 06/02/20] Carvedilol 3.125 mg [Coreg 3.125 MG] 6.25 mg PO BID 11/15/11 [History Confirmed 06/02/20] Clopidogrel Bisulfate 75 mg [PLAVIX 75 MG Tablet] 75 mg PO DAILY 11/15/11 [History Confirmed 06/02/20] Magnesium Oxide 500 mg PO BID 06/02/20 [History Confirmed 06/02/20] Rosuvastatin Calcium [Crestor] 5 mg PO HS 06/02/20 [History Confirmed 06/02/20] Allergies/Adverse Reactions: Allergies Allergy/AdvReac Type Severity Reaction Status Date / Time Penicillins Allergy Verified 06/02/20 10:58 - Past Medical History Past Medical History: Yes Neurological History: No Pertinent History ENT History: No Pertinent History Cardiac History: Coronary Artery Disease, High Cholesterol, Hypertension, Myocardial Infarction ([place]) Respiratory History: No Pertinent History Endocrine Medical History: No Pertinent History Musculoskelatal History: No Pertinent History GI Medical History: No Pertinent History History: No Pertinent History Pyscho-Social History: Depression Male Reproductive Disorders: No Pertinent History Comment: AICD - Past Surgical History Past Surgical History: Yes Neuro Surgical History: No Pertinent History Cardiac History: CABG, Cardiac Catheterization, Cardiac Stent, Internal Defibrillator, Pacemaker Respiratory Surgery: No Pertinent History GI Surgical History: Hernia Repair Genitourinary Surgical Hx: No Pertinent History Musculskeletal Surgical Hx: No Pertinent History Male Surgical History: No Pertinent History Other Surgical History: ATRIAL PACEMAKER/DEFIBRILLATOR - Social History Smoking Status: Current every day smoker How long have you smoked: years Exposure to second hand smoke: No Alcohol: Daily Drug Use: none - Physical Exam Vital Signs: Vital Signs - 24 hr Temp Pulse Resp BP Pulse Ox 06/03/20 16:00 97.7 F 64 16 114/55 97 06/03/20 12:00 98.4 F 61 18 124/62 97 06/03/20 08:00 98.0 F 64 18 126/69 95 06/03/20 06:56 63 18 95 06/03/20 03:48 98.5 F 79 20 130/59 96 06/02/20 23:58 99.6 F 77 20 131/67 97 06/02/20 20:22 98.4 F 88 22 132/58 94 L 06/02/20 20:06 86 18 96 General Appearance: no apparent distress, alert Neurologic Exam: alert, oriented x 3, cooperative, normal mood/affect, nml cerebellar function, nml station & gait, sensation nml, No motor deficits Eye Exam: PERRL/EOMI, eyes nml inspection Ears, Nose, Throat Exam: normal ENT inspection, TMs normal, pharynx normal, moist mucous membranes Neck Exam: normal inspection, non-tender, supple, full range of motion Respiratory Exam: diminished breath sounds, crackles/rales, rhonchi, wheezing, No respiratory distress Cardiovascular Exam: regular rate/rhythm, normal heart sounds, normal peripheral pulses Gastrointestinal/Abdomen Exam: soft, normal bowel sounds, No tenderness, No mass Back Exam: normal inspection, normal range of motion, No CVA tenderness, No vertebral tenderness Extremity Exam: normal inspection, normal range of motion, pelvis stable Skin Exam: normal color, warm, dry, No rash Lymphatic Exam: No adenopathy Results - Labs Lab/Micro Results: Lab Results-Last 24 Hours 06/03/20 06/03/20 Range/Units 04:58 04:58 WBC 8.3 (4.0-10.5) K/mm3 RBC 3.97 L (4.1-5.6) M/mm3 Hgb 13.3 (12.5-18.0) gm/dl Hct 40.9 L (42-50) % MCV 103.0 H (78-100) fl MCH 33.5 H (26-32) pg MCHC 32.5 (32-36) g/dl RDW 12.2 (11.5-14.0) % Plt Count 191 (150-450) K/mm3 MPV 8.8 (7.5-11.0) fl Sodium 133 L (137-145) mmol/L Potassium 5.2 H (3.5-5.1) mmol/L Chloride 102 (98-107) mmol/L Carbon Dioxide 29 (22-30) mmol/L Anion Gap 7.5 (5-15) MEQ/L BUN 10 (9-20) mg/dL Creatinine 0.87 (0.66-1.25) mg/dL Estimated GFR > 60.0 ML/MIN Glucose 111 H (74-106) mg/dL Calcium 9.2 (8.4-10.2) mg/dL Total Bilirubin 0.50 (0.2-1.3) mg/dL AST 24 (17-59) U/L ALT 12 (0-50) U/L Alkaline Phosphatase 52 (38-126) U/L Serum Total Protein 6.6 (6.3-8.2) g/dL Albumin 3.6 (3.5-5.0) g/dL Microbiology 06/02/20 11:30 Gram Stain - Final Sputum - Expectorant Sputum Culture - Preliminary POSSIBLE HAEMOPHILUS SPECIES. SENT TO REFERENCE LAB FOR IDENTIFICATION FINAL REPORT TO FOLLOW 06/02/20 11:30 Blood Culture - Preliminary Blood NO GROWTH TO DATE 06/02/20 11:15 Blood Culture - Preliminary Blood NO GROWTH TO DATE - Radiology Impressions Radiology Exams & Impressions: Radiology Procedures Category Date Time Status CHEST 1 VIEW (PORTABLE) Stat Exams 06/02/20 10:57 Completed CHEST WITH CONTRAST [CT] Stat Exams 06/02/20 11:52 Completed - Other Procedures and Tests Respiratory Therapy 06/02/20 19:00 Respiratory Therapy Assessment DAILY Assessment/Plan (1) Pneumonia Current Visit: Yes Status: Acute Qualifiers: Pneumonia type: due to unspecified organism Laterality: right Lung location: unspecified part of lung Qualified Code(s): J18.9 - Pneumonia, unspecified organism Assessment & Plan: Chief Complaint Diagnosis PNE Allergies Allergy/AdvReac Type Severity Reaction Status Date / Time Penicillins Allergy Verified 06/02/20 10:58 Vital Signs (Last 24 hours) Temp Pulse Resp BP Pulse Ox 06/03/20 16:00 97.7 F 64 16 114/55 97 06/03/20 12:00 98.4 F 61 18 124/62 97 06/03/20 08:00 98.0 F 64 18 126/69 95 06/03/20 06:56 63 18 95 06/03/20 03:48 98.5 F 79 20 130/59 96 06/02/20 23:58 99.6 F 77 20 131/67 97 06/02/20 20:22 98.4 F 88 22 132/58 94 L 06/02/20 20:06 86 18 96 Home Medications Medication Instructions Recorded Confirmed Last Taken Type Magnesium Oxide 500 mg PO BID 06/02/20 06/02/20 06/02/20 History Rosuvastatin Calcium [Crestor] 5 mg PO HS 06/02/20 06/02/20 06/01/20 History Current Medications Generic Name Dose Route Start Last Admin Trade Name Freq PRN Reason Stop Dose Admin Acetaminophen 650 mg 06/03/20 02:37 06/03/20 08:09 Tylenol 325 Mg PO 07/03/20 02:36 650 mg Q4H PRN PRN Administration PAIN AND/OR FEVER Albuterol/Ipratropium 3 ml 06/02/20 15:38 06/02/20 20:06 Duoneb 0.5-3 Mg/3 Ml Neb IH 07/02/20 15:37 3 ml Q4HPRN PRN Administration SHORTNESS OF BREATH/WHEEZING Aspirin 325 mg 06/02/20 22:00 06/02/20 21:07 Ecotrin 325 Mg PO 07/02/20 21:59 325 mg HS MICHELLE Administration Carvedilol 6.25 mg 06/02/20 22:00 06/03/20 09:30 Coreg 6.25 Mg PO 07/02/20 21:59 6.25 mg BID MICHELLE Administration Clopidogrel Bisulfate 75 mg 06/03/20 10:00 06/03/20 09:30 Plavix 75 Mg Tablet PO 07/03/20 09:59 75 mg DAILY MICHELLE Administration Sodium Chloride 1,000 mls @ 125 mls/hr 06/02/20 15:07 06/03/20 17:18 Sodium Chloride 0.9% 1000 Ml IV 07/02/20 15:06 125 mls/hr .Q8H MICHELLE Administration Ceftriaxone Sodium/Dextrose 1 g in 50 mls @ 100 mls/hr 06/03/20 10:00 06/03/20 09:30 Rocephin 1 Gm-D5w 50 Ml Bag IV 07/03/20 09:59 100 mls/hr Q24H10 MICHELLE Administration Azithromycin 500 mg in 250 mls @ 250 mls/hr 06/03/20 10:00 06/03/20 09:31 Zithromax 500 Mg/ 250 Ml Nacl Premix IV 07/03/20 09:59 250 mls/hr Q24H10 MICHELLE Administration Magnesium Oxide 400 mg 06/02/20 22:00 06/03/20 09:30 Mag-Ox 400 PO 07/02/20 21:59 400 mg BID MICHELLE Administration Simvastatin 10 mg 06/02/20 22:00 06/02/20 21:07 Zocor 10mg PO 07/02/20 21:59 10 mg HS MICHELLE Administration Discontinued Medications Generic Name Dose Route Start Last Admin Trade Name Freq PRN Reason Stop Dose Admin Carvedilol 6.25 mg 06/02/20 22:00 Coreg 3.125 Mg PO 07/02/20 21:59 BID MICHELLE Sodium Chloride 1,000 mls @ 999 mls/hr 06/02/20 10:56 06/02/20 12:11 Sodium Chloride 0.9% 1000 Ml IV 06/02/20 11:56 Infused .Q1H1M STA Infusion Sodium Chloride Confirm 06/02/20 11:05 Sodium Chloride 0.9% 1000 Ml Administered 06/02/20 11:06 Dose 1,000 mls @ ud .ROUTE .[facility] Ceftriaxone Sodium/Dextrose 1 g in 50 mls @ 100 mls/hr 06/02/20 14:14 06/02/20 14:21 Rocephin 1 Gm-D5w 50 Ml Bag IV 06/02/20 14:43 100 mls/hr STAT STA 100 mls/hr Administration Ceftriaxone Sodium/Dextrose Confirm 06/02/20 14:18 Rocephin 1 Gm-D5w 50 Ml Bag Administered 06/02/20 14:19 Dose 1 g in 50 mls @ ud IV .[facility] Intake & Output (Last 24 hours) 06/01/20 06/02/20 06/03/20 06/04/20 11:59 11:59 11:59 11:59 Intake Total 4531 240 Output Total 2300 Balance 2231 240 Weight 90.718 kg 90.2 kg Microbiology Results (Last 24 hours) 06/02/20 11:30 Sputum - Expectorant Gram Stain - Final 06/02/20 11:30 Sputum - Expectorant Sputum Culture - Preliminary POSSIBLE HAEMOPHILUS SPECIES. SENT TO REFERENCE LAB FOR IDENTIFICATION FINAL REPORT TO FOLLOW 06/02/20 11:30 Blood Blood Culture Gram Stain - Pending 06/02/20 11:30 Blood Blood Culture - Preliminary NO GROWTH TO DATE 06/02/20 11:15 Blood Blood Culture Gram Stain - Pending 06/02/20 11:15 Blood Blood Culture - Preliminary NO GROWTH TO DATE 06/02/20 11:30 Sputum - Expectorant Aerobic Culture - Pending 06/02/20 11:30 Sputum - Expectorant Aerobic Organism ID Result 1 - Pending 06/02/20 11:30 Sputum - Expectorant Aerobic Organism ID Result 2 - Pending 06/02/20 11:30 Sputum - Expectorant Aerobic Organism ID Result 3 - Pending 06/02/20 11:30 Sputum - Expectorant Aerobic Organism ID Result 4 - Pending 06/02/20 11:30 Sputum - Expectorant Aerobic Bacterial Sensitivity - Pending Laboratory Results (Last 24 hours) 06/03/20 06/03/20 04:58 04:58 WBC 8.3 RBC 3.97 L Hgb 13.3 Hct 40.9 L MCV 103.0 H MCH 33.5 H MCHC 32.5 RDW 12.2 Plt Count 191 MPV 8.8 Sodium 133 L Potassium 5.2 H Chloride 102 Carbon Dioxide 29 Anion Gap 7.5 BUN 10 Creatinine 0.87 Estimated GFR > 60.0 Glucose 111 H Calcium 9.2 Total Bilirubin 0.50 AST 24 ALT 12 Alkaline Phosphatase 52 Serum Total Protein 6.6 Albumin 3.6 Orders (Last 24 hours) Category Date Time Status CBC AM.LAB Lab 06/03/20 04:58 Completed CBC AM.LAB Lab 06/04/20 04:00 Ordered CMP AM.LAB Lab 06/03/20 04:58 Completed CMP AM.LAB Lab 06/04/20 04:00 Ordered Acetaminophen 325 mg [Tylenol 325 mg] Med 06/03/20 02:37 Active 650 mg PO Q4H PRN PRN Aspirin EC 325 mg [Ecotrin 325 MG] Med 06/02/20 22:00 Active 325 mg PO HS Azithromycin 500 mg/250 ml [Zithromax 500 MG/ 250 ML Med 06/03/20 10:00 Active NaCl Premix] 500 mg in 250 ml IV Q24H10 Carvedilol 3.125 mg [Coreg 3.125 MG] Med 06/02/20 22:00 Discontinued 6.25 mg PO BID Carvedilol 6.25 mg [Coreg 6.25 MG] Med 06/02/20 22:00 Active 6.25 mg PO BID Ceftriaxone 1 GM/50 ML PREMIX* [ROCEPHIN 1 Gm-D5w 50 ml Med 06/03/20 10:00 Active Bag] 1 g in 50 ml IV Q24H10 Clopidogrel Bisulfate 75 mg [PLAVIX 75 MG Tablet] Med 06/03/20 10:00 Active 75 mg PO DAILY Magnesium Oxide 400 mg [Mag-Ox 400] Med 06/02/20 22:00 Active 400 mg PO BID Simvastatin 10 mg [Zocor 10MG] Med 06/02/20 22:00 Active 10 mg PO HS Respiratory Therapy Assessment DAILY RT 06/02/20 19:00 Active Code(s): J18.9 - PNEUMONIA, UNSPECIFIED ORGANISM
[2020-06-03] MEDS: DUONEB 0.5-3 MG/3 ml Neb IH PRN (19:22)
[2020-06-03] MEDS: Zocor 10MG PO SCH (23:01)
[2020-06-03] MEDS: Ecotrin 325 MG PO SCH (23:01)
[2020-06-04 05:21] LABS: Hematocrit 40.5 % (42-50); Hemoglobin 13.1 gm/dl (12.5-18.0); Mean Cell Volume 103.8 fl (78-100); Mean Corpuscular Hemoglobin 33.6 pg (26-32); Mean Corpuscular Hgb Concent. 32.3 g/dl (32-36); Mean Platelet Volume 8.4 fl (7.5-11.0); Platelet Count 197 K/mm3 (150-450); Red Cell Distribution Width 12.1 % (11.5-14.0)
[2020-06-04 05:37] LABS: ALBUMIN 3.6 g/dL (3.5-5.0); ALKALINE PHOSPHATASE 48 U/L (38-126); ANION GAP 8.4 MEQ/L (5-15); BLOOD UREA NITROGEN 9 mg/dL (9-20); CHLORIDE 104 mmol/L (98-107); Calcium 9.4 mg/dL (8.4-10.2); Carbon Dioxide 27 mmol/L (22-30); Creatinine 1 0.79 mg/dL (0.66-1.25); EST GLOMERULAR FILTRATION RATE > 60.0 ML/MIN; Glucose 99 mg/dL (74-106); Potassium 4.4 mmol/L (3.5-5.1); SGOT/AST 23 U/L (17-59); SGPT/ALT 13 U/L (0-50); SODIUM 135 mmol/L (137-145); Total Protein 6.5 g/dL (6.3-8.2)
[2020-06-04] MEDS: Sodium Chloride 0.9% 1000 ML 1,000 ML IV SCH (06:51)
[2020-06-04] MEDS: Coreg 6.25 MG PO SCH (09:26)
[2020-06-04] MEDS: PLAVIX 75 MG Tablet PO SCH (09:26)
[2020-06-04] MEDS: MAG-OX 400 PO SCH (09:26)
[2020-06-04] MEDS: ROCEPHIN 1 Gm-D5w 50 ml Bag** 1 G/50 ML IVPB IV SCH (09:27)
[2020-06-04] MEDS: Zithromax 500 MG/ 250 ML NaCl Premix 500 MG/250 ML IVPB IV SCH (10:32)
[2020-06-04 12:45] VITALS: BP 147/75; PULSE 74; O2SAT 96
== END 2020-06-04 12:52 | disposition home or self-care (01) ==
LOC: ED 10:43 → MED SURG 14:44
PROVIDERS: ADMIT General Practice; ATTEND General Practice
DX: J18.9 Pneumonia, unspecified organism (principal); R68.83 Chills (without fever); R53.1 Weakness; Z79.899 Other long term (current) drug therapy; Z79.01 Long term (current) use of anticoagulants; R51.9 Headache, unspecified; E78.00 Pure hypercholesterolemia, unspecified; I10 Essential (primary) hypertension; I25.10 Atherosclerotic heart disease of native coronary artery without angina pectoris
CPT/HCPCS: 0241U; 36000; 36415; 71045; 71260; 80053; 81001; 83605; 83615; 84145; 84484; 85025; 85027; 85379; 85610; 86140; 87040; 87070; 87077; 93005; 94640; 94760; 96360; 99285; G0378; J0456; J0696; A9270-GY

== ENCOUNTER 2020-08-18 19:33 | Observation (INO) | payer MEDICARE ==
--- NOTE | 2020-08-18 19:35 | ERPHSYRPT ---
- History of Present Illness Time Seen by Provider: 08/18/20 19:34 Source: patient Exam Limitations: no limitations Physician History: This patient is a 55-year-old white male who was brought in by law enforcement because of suicidal ideation. He has a plan in place. He stated that he was going to go out into the barn and hang himself. He also stated that he is an a lcoholic and that he wants to kill his significant other. He is tired of being taken advantage of by his significant other he also stated that [facility] is familiar with him and that is where he wants to be placed. Patient has a significant cardiac history with coronary artery stents, CABG and an internal defibrillator. He denies chest pain. He denies shortness of breath. He denies abdominal pain. He is on Plavix and aspirin. Timing/Duration: today Severity of Symptoms-Max: moderate Severity of Symptoms-Current: moderate Context related to: significant other Suicidal thoughts: specific plan, other (Also verbalizing that he wants to kill his significant other) Associated Symptoms: angry, agitated, frustrated, other Previous symptoms: same symptoms as today Allergies/Adverse Reactions: Penicillins Allergy (Verified 08/18/20 19:38) Home Medications: Aspirin [Analgesic] 325 mg PO HS 11/15/11 [History] Carvedilol 3.125 mg [Coreg 3.125 MG] 6.25 mg PO BID 11/15/11 [History] Clopidogrel Bisulfate 75 mg [PLAVIX 75 MG Tablet] 75 mg PO DAILY 11/15/11 [History] Magnesium Oxide 500 mg PO BID 06/02/20 [History] Rosuvastatin Calcium [Crestor] 5 mg PO HS 06/02/20 [History] Hx Tetanus, Diphtheria Vaccination/Date Given: No (unknown) Hx Influenza Vaccination/Date Given: No Hx Pneumococcal Vaccination/Date Given: No Travel Risk - International Travel Have you traveled outside of the country in past 3 weeks: No - Coronavirus Screening Are you exhibiting any of the following symptoms?: No Close contact with a COVID-19 positive Pt in past 14-21 Days: No - Past Medical History Pertinent Past Medical History: Yes Neurological History: No Pertinent History ENT History: No Pertinent History Cardiac History: Coronary Artery Disease, High Cholesterol, Hypertension, Myocardial Infarction ([place]) Respiratory History: No Pertinent History Endocrine Medical History: No Pertinent History Musculoskeletal History: No Pertinent History GI Medical History: No Pertinent History History: No Pertinent History Psycho-Social History: Depression Male Reproductive Disorders: No Pertinent History Other Medical History: AICD - Past Surgical History Past Surgical History: Yes Neuro Surgical History: No Pertinent History Cardiac: CABG, Cardiac Catheterization, Cardiac Stent, Internal Defibrillator, Pacemaker Respiratory: No Pertinent History Gastrointestinal: Hernia Repair Genitourinary: No Pertinent History Musculoskeletal: No Pertinent History Male Surgical History: No Pertinent History Other Surgical History: ATRIAL PACEMAKER/DEFIBRILLATOR - Social History Smoking Status: Current every day smoker How long have you smoked: years Exposure to second hand smoke: No Drug Use: none Patient Lives Alone: No - Review of Systems Constitutional: No Symptoms Eyes: No Symptoms Ears, Nose, & Throat: No Symptoms Respiratory: No Symptoms Cardiac: No Symptoms, No Chest Pain, No Palpitations Abdominal/Gastrointestinal: No Symptoms Genitourinary Symptoms: No Symptoms Musculoskeletal: No Symptoms Skin: No Symptoms Neurological: No Symptoms Psychological: Anxiety, Suicidal Ideations, Homicidal Ideations Endocrine: No Symptoms Hematologic/Lymphatic: No Symptoms Immunological/Allergic: No Symptoms All Other Systems: Reviewed and Negative - Nursing Vital Signs Nursing Vital Signs: Initial Vital Signs Temperature 98.3 F 08/18/20 19:39 Pulse Rate 69 08/18/20 19:39 Respiratory Rate 16 08/18/20 19:39 Blood Pressure 132/74 08/18/20 19:39 O2 Sat by Pulse Oximetry 99 08/18/20 19:39 Pain Scale Pain Intensity 0 - Physical Exam General Appearance: no apparent distress, alert, anxiety Eyes, Ears, Nose, Throat Exam: normal ENT inspection, moist mucous membranes Neck Exam: normal inspection, non-tender, supple, full range of motion Respiratory Exam: normal breath sounds, lungs clear, airway intact, No chest tenderness, No respiratory distress Cardiovascular Exam: regular rate/rhythm, normal heart sounds, normal peripheral pulses Gastrointestinal/Abdominal Exam: soft, normal bowel sounds, No tenderness Extremities Exam: normal inspection, normal range of motion, No evidence of injury Current Suicidality: has suicide plan (She states that he is going to hang himself in the barn) Neurological Exam: alert, normal mood/affect, calm, 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 There are borderline T wave abnormalities on today's EKG. There is no significant change on today's EKG when compared to EKG dated 06/02/2020) Ordered Tests: Active Orders 24 hr Category Date Time Status EKG-ER Only STAT Care 08/18/20 19:35 Active ACETAMINOPHEN Stat Lab 08/18/20 19:46 Completed CBC W DIFF Stat Lab 08/18/20 19:46 Completed CMP Stat Lab 08/18/20 19:46 Completed ETHYL ALCOHOL Stat Lab 08/18/20 19:46 Completed SALICYLATE Stat Lab 08/18/20 19:46 Completed UA W/RFX UR CULTURE Stat Lab 08/18/20 19:39 Ordered Urine Triage Profile Stat Lab 08/18/20 19:39 Ordered Transfer Order Routine Transfer 08/18/20 Ordered Lab/Rad Data: Laboratory Result Diagrams 08/18/20 19:46 08/18/20 19:46 Laboratory Results 08/18/20 08/18/20 08/18/20 Range/Units 19:46 19:46 19:39 WBC 7.4 (4.0-10.5) K/mm3 RBC 4.39 (4.1-5.6) M/mm3 Hgb 14.9 (12.5-18.0) gm/dl Hct 43.8 (42-50) % MCV 99.8 (78-100) fl MCH 33.9 H (26-32) pg MCHC 34.0 (32-36) g/dl RDW 12.0 (11.5-14.0) % Plt Count 241 (150-450) K/mm3 MPV 8.2 (7.5-11.0) fl Gran % 54.5 (36.0-66.0) % Eos # (Auto) 0.24 (0-0.5) Absolute Lymphs (auto) 2.74 (1.0-4.6) Absolute Monos (auto) 0.38 (0.0-1.3) Lymphocytes % 36.9 (24.0-44.0) % Monocytes % 5.1 (0.0-12.0) % Eosinophils % 3.2 (0.00-5.0) % Basophils % 0.3 (0.0-0.4) % Absolute Granulocytes 4.04 (1.4-6.9) Basophils # 0.02 (0-0.4) Sodium 141 (137-145) mmol/L Potassium 4.0 (3.5-5.1) mmol/L Chloride 106 (98-107) mmol/L Carbon Dioxide 23 (22-30) mmol/L Anion Gap 16.2 H (5-15) MEQ/L BUN 7 L (9-20) mg/dL Creatinine 0.83 (0.66-1.25) mg/dL Estimated GFR > 60.0 ML/MIN Glucose 94 (74-106) mg/dL Calcium 9.8 (8.4-10.2) mg/dL Total Bilirubin 0.40 (0.2-1.3) mg/dL AST 36 (17-59) U/L ALT 19 (0-50) U/L Alkaline Phosphatase 56 (38-126) U/L Serum Total Protein 7.8 (6.3-8.2) g/dL Albumin 4.8 (3.5-5.0) g/dL Urine Color (YELLOW) Urine Appearance (CLEAR) Urine pH (5-6) Ur Specific [place] (1.005-1.025) Urine Protein (Negative) Urine Ketones (NEGATIVE) Urine Blood (0-5) Viktor/ul Urine Nitrite (NEGATIVE) Urine Bilirubin (NEGATIVE) Urine Urobilinogen (0-1) mg/dL Ur Leukocyte Esterase (NEGATIVE) Urine WBC (Auto) (0-5) /HPF Urine RBC (Auto) (0-2) /HPF U Epithel Cells (Auto) (FEW) /HPF Urine Bacteria (Auto) (NEGATIVE) /HPF Urine Culture Reflexed (NO) Urine Glucose (NEGATIVE) mg/dL Salicylates < 1.0 L (2-20) mg/dL Urine Opiates Level NEGATIVE (NEGATIVE) Ur Methadone NEGATIVE (NEGATIVE) Acetaminophen < 10 L (10-30) ug/ml Urine Barbiturates NEGATIVE (NEGATIVE) Ur Phencyclidine (PCP) NEGATIVE (NEGATIVE) Urine Amphetamine NEGATIVE (NEGATIVE) U Benzodiazepine Level NEGATIVE (NEGATIVE) Urine Cocaine NEGATIVE (NEGATIVE) Urine Marijuana (THC) NEGATIVE (NEGATIVE) Ethyl Alcohol 241 H (0-10) mg/dL 08/18/20 Range/Units 19:39 WBC (4.0-10.5) K/mm3 RBC (4.1-5.6) M/mm3 Hgb (12.5-18.0) gm/dl Hct (42-50) % MCV (78-100) fl MCH (26-32) pg MCHC (32-36) g/dl RDW (11.5-14.0) % Plt Count (150-450) K/mm3 MPV (7.5-11.0) fl Gran % (36.0-66.0) % Eos # (Auto) (0-0.5) Absolute Lymphs (auto) (1.0-4.6) Absolute Monos (auto) (0.0-1.3) Lymphocytes % (24.0-44.0) % Monocytes % (0.0-12.0) % Eosinophils % (0.00-5.0) % Basophils % (0.0-0.4) % Absolute Granulocytes (1.4-6.9) Basophils # (0-0.4) Sodium (137-145) mmol/L Potassium (3.5-5.1) mmol/L Chloride (98-107) mmol/L Carbon Dioxide (22-30) mmol/L Anion Gap (5-15) MEQ/L BUN (9-20) mg/dL Creatinine (0.66-1.25) mg/dL Estimated GFR ML/MIN Glucose (74-106) mg/dL Calcium (8.4-10.2) mg/dL Total Bilirubin (0.2-1.3) mg/dL AST (17-59) U/L ALT (0-50) U/L Alkaline Phosphatase (38-126) U/L Serum Total Protein (6.3-8.2) g/dL Albumin (3.5-5.0) g/dL Urine Color STRAW (YELLOW) Urine Appearance CLEAR (CLEAR) Urine pH 7.0 (5-6) Ur Specific [place] 1.001 (1.005-1.025) Urine Protein NEGATIVE (Negative) Urine Ketones NEGATIVE (NEGATIVE) Urine Blood SMALL (0-5) Viktor/ul Urine Nitrite NEGATIVE (NEGATIVE) Urine Bilirubin NEGATIVE (NEGATIVE) Urine Urobilinogen NEGATIVE (0-1) mg/dL Ur Leukocyte Esterase NEGATIVE (NEGATIVE) Urine WBC (Auto) NONE (0-5) /HPF Urine RBC (Auto) NONE SEEN (0-2) /HPF U Epithel Cells (Auto) NONE (FEW) /HPF Urine Bacteria (Auto) NONE SEEN (NEGATIVE) /HPF Urine Culture Reflexed NO (NO) Urine Glucose NEGATIVE (NEGATIVE) mg/dL Salicylates (2-20) mg/dL Urine Opiates Level (NEGATIVE) Ur Methadone (NEGATIVE) Acetaminophen (10-30) ug/ml Urine Barbiturates (NEGATIVE) Ur Phencyclidine (PCP) (NEGATIVE) Urine Amphetamine (NEGATIVE) U Benzodiazepine Level (NEGATIVE) Urine Cocaine (NEGATIVE) Urine Marijuana (THC) (NEGATIVE) Ethyl Alcohol (0-10) mg/dL - Progress Progress: unchanged, re-examined Progress Note: 08/18/20 21:00 Medical decision making: This patient has blood alcohol level that is 241. This is too high to have mental health evaluation. We will place the patient in observation and allow his blood alcohol level to decrease to a point where he can undergo mental health evaluation. I spoke with Dr. Juarez. Will place in observation and repeat labs tomorrow morning. We will also provide the patient with Ativan intramuscularly. Discussed with : Christine Counseled pt/family regarding: lab results, diagnosis - Departure Departure Disposition: Observation Clinical Impression: Alcohol intoxication, Suicidal ideation, Homicidal ideation Condition: Stable Critical Care Time: No Referrals: DOCTOR,NO FAMILY [Primary Care Provider] -
[2020-08-18 19:49] LABS: Absolute Neutrophil Ct (ANC) 4.04 (1.4-6.9); BASOPHIL % 0.3 % (0.0-0.4); Basophil (Absolute #) 0.02 (0-0.4); Eosinophil % 3.2 % (0.00-5.0); Eosinophil (Absolute #) 0.24 (0-0.5); Hematocrit 43.8 % (42-50); Hemoglobin 14.9 gm/dl (12.5-18.0); Lymphocyte (Absolute #) 2.74 (1.0-4.6); Lymphocytes % 36.9 % (24.0-44.0); Mean Cell Volume 99.8 fl (78-100); Mean Corpuscular Hemoglobin 33.9 pg (26-32); Mean Platelet Volume 8.2 fl (7.5-11.0); Monocyte (Absolute #) 0.38 (0.0-1.3); Monocytes % 5.1 % (0.0-12.0); Neutrophil % 54.5 % (36.0-66.0); Platelet Count 241 K/mm3 (150-450); Red Blood Count 4.39 M/mm3 (4.1-5.6); White Blood Count 7.4 K/mm3 (4.0-10.5)
[2020-08-18 19:52] LABS: Appearance CLEAR (CLEAR); Bilirubin NEGATIVE (NEGATIVE); Blood SMALL Ery/ul (0-5); Glucose NEGATIVE (NEGATIVE); Ketones NEGATIVE (NEGATIVE); Leukocyte Esterase NEGATIVE (NEGATIVE); Nitrite NEGATIVE (NEGATIVE); Protein,Urine Dip NEGATIVE (Negative); Specific Gravity 1.001 (1.005-1.025); Urobilinogen NEGATIVE mg/dL (0-1)
[2020-08-18 19:53] LABS: Bacteria NONE SEEN /HPF (NEGATIVE); RBC NONE SEEN /HPF (0-2)
[2020-08-18 20:00] LABS: ACETAMINOPHEN < 10 ug/ml (10-30); ALBUMIN 4.8 g/dL (3.5-5.0); ALKALINE PHOSPHATASE 56 U/L (38-126); ANION GAP 16.2 MEQ/L (5-15); BLOOD UREA NITROGEN 7 mg/dL (9-20); CHLORIDE 106 mmol/L (98-107); Calcium 9.8 mg/dL (8.4-10.2); Carbon Dioxide 23 mmol/L (22-30); Creatinine 1 0.83 mg/dL (0.66-1.25); EST GLOMERULAR FILTRATION RATE > 60.0 ML/MIN; ETHYL ALCOHOL 241 mg/dL (0-10); Glucose 94 mg/dL (74-106); SALICYLATE < 1.0 mg/dL (2-20); SGOT/AST 36 U/L (17-59); SGPT/ALT 19 U/L (0-50); SODIUM 141 mmol/L (137-145); Total Protein 7.8 g/dL (6.3-8.2)
[2020-08-18 20:06] LABS: Amphetamine,Urine NEGATIVE (NEGATIVE); Barbiturate,Urine NEGATIVE (NEGATIVE); Benzodiazepine,Urine NEGATIVE (NEGATIVE); Cocaine,Urine NEGATIVE (NEGATIVE); Methadone,Urine NEGATIVE (NEGATIVE); Opiate,Urine NEGATIVE (NEGATIVE); PCP,Urine NEGATIVE (NEGATIVE); THC,Urine NEGATIVE (NEGATIVE)
[2020-08-18] MEDS ORDERED: Sodium Chloride 0.9% 1000 ML 1,000 ML IV STA (21:43)
[2020-08-18] MEDS ORDERED: Sodium Chloride 0.9% 1000 ML 1,000 ML ONE (21:46)
[2020-08-18] MEDS ORDERED: Ativan 2 MG/1 ML VIAL IV ONE (21:52)
[2020-08-18] MEDS ORDERED: Ativan 2 MG/1 ML VIAL ONE (21:54)
[2020-08-18 21:55] LABS: INFLUENZA A NEGATIVE (NEGATIVE); INFLUENZA B NEGATIVE (NEGATIVE); RESPIRATORY SYNCTIAL VIRUS NEGATIVE (Negative)
[2020-08-18] MEDS ORDERED: Zofran 4 MG/2 ML VIAL IV PRN (22:42)
[2020-08-18] MEDS ORDERED: PROTONIX 40 MG IV IV SCH (22:42)
[2020-08-18] MEDS ORDERED: Ativan 2 MG/1 ML VIAL IV PRN (22:42)
[2020-08-18] MEDS: Sodium Chloride 0.9% 1000 ML 1,000 ML IV SCH (22:52)
[2020-08-19 06:09] LABS: Absolute Neutrophil Ct (ANC) 2.69 (1.4-6.9); BASOPHIL % 0.3 % (0.0-0.4); Basophil (Absolute #) 0.02 (0-0.4); Eosinophil % 6.6 % (0.00-5.0); Eosinophil (Absolute #) 0.39 (0-0.5); Hematocrit 38.7 % (42-50); Hemoglobin 12.6 gm/dl (12.5-18.0); Lymphocytes % 40.3 % (24.0-44.0); Mean Cell Volume 103.5 fl (78-100); Mean Corpuscular Hemoglobin 33.7 pg (26-32); Mean Corpuscular Hgb Concent. 32.6 g/dl (32-36); Mean Platelet Volume 8.9 fl (7.5-11.0); Monocyte (Absolute #) 0.45 (0.0-1.3); Monocytes % 7.6 % (0.0-12.0); Neutrophil % 45.2 % (36.0-66.0); Platelet Count 230 K/mm3 (150-450); Red Blood Count 3.74 M/mm3 (4.1-5.6); Red Cell Distribution Width 12.2 % (11.5-14.0)
--- NOTE | 2020-08-19 06:17 | PCM.SSS ---
History of Present Illness - Chief Complaint Chief Complaint: Suicidal ideation/homicidal ideation History of Present Illness: is a 55 year old male who presented to the ER with acute alcohol intoxication as well as suicidal and homicidal ideation. he apparently was very intoxicated and made suggestion that he would hang himself in his garage and also threatened to kill his girlfriend, this morning he is alert and answers questions well. he drinks often but not every day, no history of withdrawal/DT in the past. he states he fights often with his girlfriend and needs to get out of his current situation but has no where to go, he admits to often feeling like he would be better off , he denies feeling unsafe and has no current suicidal or homicidal thoughts. 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 - Review of Systems Constitutional: No Fever, No Chills Respiratory: No Cough, No Short Of Breath Cardiac: No Chest Pain, No Edema, No Syncope Abdominal/Gastrointestinal: No Abdominal Pain, No Nausea, No Vomiting, No Diarrhea Skin: No Rash Psychological: Alcohol Abuse, Emotional Lability, No Hallucinations All Other Systems: Reviewed and Negative Medications & Allergies Home Medications: Home Medication List Aspirin [Analgesic] 325 mg PO HS 11/15/11 [History Confirmed 08/18/20] Carvedilol 3.125 mg [Coreg 3.125 MG] 6.25 mg PO BID 11/15/11 [History Confirmed 08/18/20] Clopidogrel Bisulfate 75 mg [PLAVIX 75 MG Tablet] 75 mg PO DAILY 11/15/11 [History Confirmed 08/18/20] Magnesium Oxide 500 mg PO BID 06/02/20 [History Confirmed 08/18/20] Rosuvastatin Calcium [Crestor] 5 mg PO HS 06/02/20 [History Confirmed 08/18/20] Allergies/Adverse Reactions: Allergies Allergy/AdvReac Type Severity Reaction Status Date / Time Penicillins Allergy Verified 08/18/20 19:38 - Past Medical History Past Medical History: Yes Neurological History: No Pertinent History ENT History: Cataracts Cardiac History: Coronary Artery Disease, High Cholesterol, Hypertension, M yocardial Infarction ([place]) Respiratory History: CHF Endocrine Medical History: No Pertinent History Musculoskelatal History: No Pertinent History GI Medical History: No Pertinent History History: No Pertinent History Pyscho-Social History: Anxiety, Bipolar, Depression, Panic Disorder Male Reproductive Disorders: No Pertinent History Comment: AICD - Past Surgical History Past Surgical History: Yes Neuro Surgical History: No Pertinent History Cardiac History: CABG, Cardiac Catheterization, Cardiac Stent, Internal Defibrillator, Pacemaker Respiratory Surgery: No Pertinent History GI Surgical History: Hernia Repair Genitourinary Surgical Hx: No Pertinent History Musculskeletal Surgical Hx: No Pertinent History Male Surgical History: No Pertinent History Other Surgical History: ATRIAL PACEMAKER/DEFIBRILLATOR - Social History Smoking Status: Current every day smoker How long have you smoked: years Exposure to second hand smoke: No Alcohol: Daily Drug Use: none - Physical Exam Vital Signs: Vital Signs - 24 hr Temp Pulse Resp BP Pulse Ox 08/19/20 05:50 72 21 108/63 98 08/19/20 05:00 72 21 108/63 98 08/19/20 04:00 69 16 103/49 100 08/19/20 03:00 71 101/69 97 08/19/20 02:40 71 101/69 97 08/19/20 02:00 71 101/69 97 08/19/20 01:25 97 08/19/20 01:00 71 101/69 97 08/19/20 00:01 71 08/19/20 00:00 69 21 101/69 99 08/18/20 23:08 71 12 88/50 99 08/18/20 23:00 71 12 88/50 99 08/18/20 22:42 98 08/18/20 22:40 99.3 F 67 17 91/49 98 08/18/20 22:00 72 16 103/55 99 08/18/20 21:00 78 18 116/74 99 08/18/20 20:37 74 111/67 97 08/18/20 19:39 98.3 F 69 16 132/74 99 General Appearance: no apparent distress, alert Neurologic Exam: alert, oriented x 3, cooperative, normal mood/affect, nml cerebellar function, nml station & gait, sensation nml, No motor deficits Respiratory Exam: normal breath sounds, lungs clear, No respiratory distress Cardiovascular Exam: regular rate/rhythm, normal heart sounds, normal peripheral pulses Gastrointestinal/Abdomen Exam: soft, normal bowel sounds, No tenderness, No mass Extremity Exam: normal inspection, normal range of motion, pelvis stable Skin Exam: normal color, warm, dry, No rash Results - Labs Lab/Micro Results: Lab Results-Last 24 Hours 08/18/20 08/18/20 08/18/20 Range/Units 19:39 19:39 19:46 WBC 7.4 (4.0-10.5) K/mm3 RBC 4.39 (4.1-5.6) M/mm3 Hgb 14.9 (12.5-18.0) gm/dl Hct 43.8 (42-50) % MCV 99.8 (78-100) fl MCH 33.9 H (26-32) pg MCHC 34.0 (32-36) g/dl RDW 12.0 (11.5-14.0) % Plt Count 241 (150-450) K/mm3 MPV 8.2 (7.5-11.0) fl Gran % 54.5 (36.0-66.0) % Eos # (Auto) 0.24 (0-0.5) Absolute Lymphs (auto) 2.74 (1.0-4.6) Absolute Monos (auto) 0.38 (0.0-1.3) Lymphocytes % 36.9 (24.0-44.0) % Monocytes % 5.1 (0.0-12.0) % Eosinophils % 3.2 (0.00-5.0) % Basophils % 0.3 (0.0-0.4) % Absolute Granulocytes 4.04 (1.4-6.9) Basophils # 0.02 (0-0.4) Sodium (137-145) mmol/L Potassium (3.5-5.1) mmol/L Chloride (98-107) mmol/L Carbon Dioxide (22-30) mmol/L Anion Gap (5-15) MEQ/L BUN (9-20) mg/dL Creatinine (0.66-1.25) mg/dL Estimated GFR ML/MIN Glucose (74-106) mg/dL Calcium (8.4-10.2) mg/dL Total Bilirubin (0.2-1.3) mg/dL AST (17-59) U/L ALT (0-50) U/L Alkaline Phosphatase (38-126) U/L Serum Total Protein (6.3-8.2) g/dL Albumin (3.5-5.0) g/dL Urine Color STRAW (YELLOW) Urine Appearance CLEAR (CLEAR) Urine pH 7.0 (5-6) Ur Specific Marion 1.001 (1.005-1.025) Urine Protein NEGATIVE (Negative) Urine Ketones NEGATIVE (NEGATIVE) Urine Blood SMALL (0-5) Viktor/ul Urine Nitrite NEGATIVE (NEGATIVE) Urine Bilirubin NEGATIVE (NEGATIVE) Urine Urobilinogen NEGATIVE (0-1) mg/dL Ur Leukocyte Esterase NEGATIVE (NEGATIVE) Urine WBC (Auto) NONE (0-5) /HPF Urine RBC (Auto) NONE SEEN (0-2) /HPF U Epithel Cells (Auto) NONE (FEW) /HPF Urine Bacteria (Auto) NONE SEEN (NEGATIVE) /HPF Urine Culture Reflexed NO (NO) Urine Glucose NEGATIVE (NEGATIVE) mg/dL Salicylates (2-20) mg/dL Urine Opiates Level NEGATIVE (NEGATIVE) Ur Methadone NEGATIVE (NEGATIVE) Acetaminophen (10-30) ug/ml Urine Barbiturates NEGATIVE (NEGATIVE) Ur Phencyclidine (PCP) NEGATIVE (NEGATIVE) Urine Amphetamine NEGATIVE (NEGATIVE) U Benzodiazepine Level NEGATIVE (NEGATIVE) Urine Cocaine NEGATIVE (NEGATIVE) Urine Marijuana (THC) NEGATIVE (NEGATIVE) Ethyl Alcohol (0-10) mg/dL Influenza Type A Ag (NEGATIVE) Influenza Type B Ag (NEGATIVE) RSV (PCR) (Negative) SARS-CoV-2 (PCR) (NEGATIVE) 08/18/20 08/18/20 Range/Units 19:46 21:16 WBC (4.0-10.5) K/mm3 RBC (4.1-5.6) M/mm3 Hgb (12.5-18.0) gm/dl Hct (42-50) % MCV (78-100) fl MCH (26-32) pg MCHC (32-36) g/dl RDW (11.5-14.0) % Plt Count (150-450) K/mm3 MPV (7.5-11.0) fl Gran % (36.0-66.0) % Eos # (Auto) (0-0.5) Absolute Lymphs (auto) (1.0-4.6) Absolute Monos (auto) (0.0-1.3) Lymphocytes % (24.0-44.0) % Monocytes % (0.0-12.0) % Eosinophils % (0.00-5.0) % Basophils % (0.0-0.4) % Absolute Granulocytes (1.4-6.9) Basophils # (0-0.4) Sodium 141 (137-145) mmol/L Potassium 4.0 (3.5-5.1) mmol/L Chloride 106 (98-107) mmol/L Carbon Dioxide 23 (22-30) mmol/L Anion Gap 16.2 H (5-15) MEQ/L BUN 7 L (9-20) mg/dL Creatinine 0.83 (0.66-1.25) mg/dL Estimated GFR > 60.0 ML/MIN Glucose 94 (74-106) mg/dL Calcium 9.8 (8.4-10.2) mg/dL Total Bilirubin 0.40 (0.2-1.3) mg/dL AST 36 (17-59) U/L ALT 19 (0-50) U/L Alkaline Phosphatase 56 (38-126) U/L Serum Total Protein 7.8 (6.3-8.2) g/dL Albumin 4.8 (3.5-5.0) g/dL Urine Color (YELLOW) Urine Appearance (CLEAR) Urine pH (5-6) Ur Specific Marion (1.005-1.025) Urine Protein (Negative) Urine Ketones (NEGATIVE) Urine Blood (0-5) Viktor/ul Urine Nitrite (NEGATIVE) Urine Bilirubin (NEGATIVE) Urine Urobilinogen (0-1) mg/dL Ur Leukocyte Esterase (NEGATIVE) Urine WBC (Auto) (0-5) /HPF Urine RBC (Auto) (0-2) /HPF U Epithel Cells (Auto) (FEW) /HPF Urine Bacteria (Auto) (NEGATIVE) /HPF Urine Culture Reflexed (NO) Urine Glucose (NEGATIVE) mg/dL Salicylates < 1.0 L (2-20) mg/dL Urine Opiates Level (NEGATIVE) Ur Methadone (NEGATIVE) Acetaminophen < 10 L (10-30) ug/ml Urine Barbiturates (NEGATIVE) Ur Phencyclidine (PCP) (NEGATIVE) Urine Amphetamine (NEGATIVE) U Benzodiazepine Level (NEGATIVE) Urine Cocaine (NEGATIVE) Urine Marijuana (THC) (NEGATIVE) Ethyl Alcohol 241 H (0-10) mg/dL Influenza Type A Ag NEGATIVE (NEGATIVE) Influenza Type B Ag NEGATIVE (NEGATIVE) RSV (PCR) NEGATIVE (Negative) SARS-CoV-2 (PCR) NEGATIVE (NEGATIVE) Assessment/Plan (1) Alcohol intoxication Current Visit: Yes Status: Acute Assessment & Plan: repeat etoh level this am, plan for psych consult when available (2) Homicidal ideation Current Visit: Yes Status: Acute Assessment & Plan: no current SI/HI, will release when cleared by psych, social situation is tense, will consult discharge planning to provide resources for housing availability etc. Code(s): R45.850 - HOMICIDAL IDEATIONS (3) Suicidal ideation Current Visit: Yes Status: Acute Code(s): R45.851 - SUICIDAL IDEATIONS Hospital Summary - Vitals & Intake/Output Vital Signs: Vital Signs Temperature 99.3 F 08/18/20 22:40 Pulse Rate 72 08/19/20 05:50 Respiratory Rate 21 08/19/20 05:50 Blood Pressure 108/63 08/19/20 05:50 O2 Sat by Pulse Oximetry 98 08/19/20 05:50 Intake & Output: Intake & Output 08/16/20 08/17/20 08/18/20 08/19/20 11:59 11:59 11:59 11:59 Intake Total 1150 Output Total 500 Balance 650 Weight 90.3 kg - Lab Result Diagrams: 08/18/20 19:46 08/18/20 19:46 Lab Results-Last 24 Hrs: Lab Results-Last 24 Hours 08/18/20 08/18/20 08/18/20 Range/Units 19:39 19:39 19:46 WBC 7.4 (4.0-10.5) K/mm3 RBC 4.39 (4.1-5.6) M/mm3 Hgb 14.9 (12.5-18.0) gm/dl Hct 43.8 (42-50) % MCV 99.8 (78-100) fl MCH 33.9 H (26-32) pg MCHC 34.0 (32-36) g/dl RDW 12.0 (11.5-14.0) % Plt Count 241 (150-450) K/mm3 MPV 8.2 (7.5-11.0) fl Gran % 54.5 (36.0-66.0) % Eos # (Auto) 0.24 (0-0.5) Absolute Lymphs (auto) 2.74 (1.0-4.6) Absolute Monos (auto) 0.38 (0.0-1.3) Lymphocytes % 36.9 (24.0-44.0) % Monocytes % 5.1 (0.0-12.0) % Eosinophils % 3.2 (0.00-5.0) % Basophils % 0.3 (0.0-0.4) % Absolute Granulocytes 4.04 (1.4-6.9) Basophils # 0.02 (0-0.4) Sodium (137-145) mmol/L Potassium (3.5-5.1) mmol/L Chloride (98-107) mmol/L Carbon Dioxide (22-30) mmol/L Anion Gap (5-15) MEQ/L BUN (9-20) mg/dL Creatinine (0.66-1.25) mg/dL Estimated GFR ML/MIN Glucose (74-106) mg/dL Calcium (8.4-10.2) mg/dL Total Bilirubin (0.2-1.3) mg/dL AST (17-59) U/L ALT (0-50) U/L Alkaline Phosphatase (38-126) U/L Serum Total Protein (6.3-8.2) g/dL Albumin (3.5-5.0) g/dL Urine Color STRAW (YELLOW) Urine Appearance CLEAR (CLEAR) Urine pH 7.0 (5-6) Ur Specific Marion 1.001 (1.005-1.025) Urine Protein NEGATIVE (Negative) Urine Ketones NEGATIVE (NEGATIVE) Urine Blood SMALL (0-5) Viktor/ul Urine Nitrite NEGATIVE (NEGATIVE) Urine Bilirubin NEGATIVE (NEGATIVE) Urine Urobilinogen NEGATIVE (0-1) mg/dL Ur Leukocyte Esterase NEGATIVE (NEGATIVE) Urine WBC (Auto) NONE (0-5) /HPF Urine RBC (Auto) NONE SEEN (0-2) /HPF U Epithel Cells (Auto) NONE (FEW) /HPF Urine Bacteria (Auto) NONE SEEN (NEGATIVE) /HPF Urine Culture Reflexed NO (NO) Urine Glucose NEGATIVE (NEGATIVE) mg/dL Salicylates (2-20) mg/dL Urine Opiates Level NEGATIVE (NEGATIVE) Ur Methadone NEGATIVE (NEGATIVE) Acetaminophen (10-30) ug/ml Urine Barbiturates NEGATIVE (NEGATIVE) Ur Phencyclidine (PCP) NEGATIVE (NEGATIVE) Urine Amphetamine NEGATIVE (NEGATIVE) U Benzodiazepine Level NEGATIVE (NEGATIVE) Urine Cocaine NEGATIVE (NEGATIVE) Urine Marijuana (THC) NEGATIVE (NEGATIVE) Ethyl Alcohol (0-10) mg/dL Influenza Type A Ag (NEGATIVE) Influenza Type B Ag (NEGATIVE) RSV (PCR) (Negative) SARS-CoV-2 (PCR) (NEGATIVE) 08/18/20 08/18/20 Range/Units 19:46 21:16 WBC (4.0-10.5) K/mm3 RBC (4.1-5.6) M/mm3 Hgb (12.5-18.0) gm/dl Hct (42-50) % MCV (78-100) fl MCH (26-32) pg MCHC (32-36) g/dl RDW (11.5-14.0) % Plt Count (150-450) K/mm3 MPV (7.5-11.0) fl Gran % (36.0-66.0) % Eos # (Auto) (0-0.5) Absolute Lymphs (auto) (1.0-4.6) Absolute Monos (auto) (0.0-1.3) Lymphocytes % (24.0-44.0) % Monocytes % (0.0-12.0) % Eosinophils % (0.00-5.0) % Basophils % (0.0-0.4) % Absolute Granulocytes (1.4-6.9) Basophils # (0-0.4) Sodium 141 (137-145) mmol/L Potassium 4.0 (3.5-5.1) mmol/L Chloride 106 (98-107) mmol/L Carbon Dioxide 23 (22-30) mmol/L Anion Gap 16.2 H (5-15) MEQ/L BUN 7 L (9-20) mg/dL Creatinine 0.83 (0.66-1.25) mg/dL Estimated GFR > 60.0 ML/MIN Glucose 94 (74-106) mg/dL Calcium 9.8 (8.4-10.2) mg/dL Total Bilirubin 0.40 (0.2-1.3) mg/dL AST 36 (17-59) U/L ALT 19 (0-50) U/L Alkaline Phosphatase 56 (38-126) U/L Serum Total Protein 7.8 (6.3-8.2) g/dL Albumin 4.8 (3.5-5.0) g/dL Urine Color (YELLOW) Urine Appearance (CLEAR) Urine pH (5-6) Ur Specific Marion (1.005-1.025) Urine Protein (Negative) Urine Ketones (NEGATIVE) Urine Blood (0-5) Viktor/ul Urine Nitrite (NEGATIVE) Urine Bilirubin (NEGATIVE) Urine Urobilinogen (0-1) mg/dL Ur Leukocyte Esterase (NEGATIVE) Urine WBC (Auto) (0-5) /HPF Urine RBC (Auto) (0-2) /HPF U Epithel Cells (Auto) (FEW) /HPF Urine Bacteria (Auto) (NEGATIVE) /HPF Urine Culture Reflexed (NO) Urine Glucose (NEGATIVE) mg/dL Salicylates < 1.0 L (2-20) mg/dL Urine Opiates Level (NEGATIVE) Ur Methadone (NEGATIVE) Acetaminophen < 10 L (10-30) ug/ml Urine Barbiturates (NEGATIVE) Ur Phencyclidine (PCP) (NEGATIVE) Urine Amphetamine (NEGATIVE) U Benzodiazepine Level (NEGATIVE) Urine Cocaine (NEGATIVE) Urine Marijuana (THC) (NEGATIVE) Ethyl Alcohol 241 H (0-10) mg/dL Influenza Type A Ag NEGATIVE (NEGATIVE) Influenza Type B Ag NEGATIVE (NEGATIVE) RSV (PCR) NEGATIVE (Negative) SARS-CoV-2 (PCR) NEGATIVE (NEGATIVE) - Procedures and Test Procedures and Tests throughout Hospitalization: Therapy Orders & Screens 08/18/20 22:42 EKG REPEAT IN AM Comment: 08/18/20 23:25 Smoking Cessation Education ONCE Comment: Diagnosis: Suicidal ideation/homicidal ideation Smoking Status: Current every day smoker How long have you smoked: years Have you smoked in the past 12 months: Yes Approximately how many cigarettes per day: 20 Do you dip or chew tobacco: No - Discharge Disposition: Home, Self-Care Condition: Stable Prescriptions: Continue Clopidogrel Bisulfate 75 mg [PLAVIX 75 MG Tablet] 75 mg PO DAILY Carvedilol 3.125 mg [Coreg 3.125 MG] 6.25 mg PO BID Aspirin [Analgesic] 325 mg PO HS Rosuvastatin Calcium [Crestor] 5 mg PO HS Magnesium Oxide 500 mg PO BID
[2020-08-19 07:02] LABS: ALBUMIN 3.8 g/dL (3.5-5.0); ALKALINE PHOSPHATASE 38 U/L (38-126); BLOOD UREA NITROGEN 8 mg/dL (9-20); CHLORIDE 112 mmol/L (98-107); Calcium 8.8 mg/dL (8.4-10.2); Carbon Dioxide 20 mmol/L (22-30); Creatinine 1 0.88 mg/dL (0.66-1.25); EST GLOMERULAR FILTRATION RATE > 60.0 ML/MIN; ETHYL ALCOHOL 27 mg/dL (0-10); Glucose 136 mg/dL (74-106); Potassium 3.9 mmol/L (3.5-5.1); SGOT/AST 34 U/L (17-59); SGPT/ALT 16 U/L (0-50); SODIUM 142 mmol/L (137-145); Total Protein 6.3 g/dL (6.3-8.2)
[2020-08-19] MEDS: Coreg 6.25 MG PO SCH ×2 (09:20→21:07)
[2020-08-19] MEDS: Sodium Chloride 0.9% 1000 ML 1,000 ML IV SCH (09:20)
[2020-08-19] MEDS: PLAVIX 75 MG Tablet PO SCH (09:20)
[2020-08-19] MEDS: MAG-OX 400 PO SCH ×2 (09:20→21:07)
[2020-08-19] MEDS ORDERED: MAGNESIUM OXIDE 500 MG PO SCH (10:00)
[2020-08-19] MEDS ORDERED: Zocor 10MG PO SCH (22:00)
[2020-08-19] MEDS ORDERED: Ecotrin 325 MG PO SCH (22:00)
[2020-08-19] MEDS ORDERED: PROTONIX 40 MG IV IV SCH (22:00)
[2020-08-19] MEDS ORDERED: NON-FORMULARY ITEM (Rosuvastatin Calcium [Crestor] 5 MG) PO SCH (22:00)
[2020-08-19] MEDS ORDERED: ASPIRIN 325 MG PO SCH (22:00)
--- NOTE | 2020-08-20 09:24 | PCM.DS ---
Discharge Summary Date of Admission: 08/18/20 22:34 Admitting Physician: CYN ELLIOTT Consults: Consults on Case 08/19/20 06:17 Consult,Josue [Psychiatric Consult] STAT Primary Care Provider: NO FAMILY DOCTOR Allergies Allergies Penicillins Allergy (Verified 08/18/20 19:38) Hospital Summary - Hospital Course Hospital Course: Pt is a 55 yo male who was admitted through ER with alcohol intoxication and suicidal and homicidal ideation. He was ID'd initially, although that has and pt is still here. He has not had any sign of DTs. He has admitted to depression but no active suicidal ideation currently. [facility] [place] consulted, thank you, and recommended placement, which they are working on. Pt is agreeable. This morning he is doing ok, no complaints. Depressed but not suicidal. Balbir po. - Vitals & Intake/Output Vital Signs: Vital Signs Temperature 98.5 F 08/20/20 07:38 Pulse Rate 60 08/20/20 08:00 Respiratory Rate 16 08/20/20 07:38 Blood Pressure 138/68 08/20/20 07:38 O2 Sat by Pulse Oximetry 97 08/20/20 07:38 Intake & Output: Intake & Output 08/17/20 08/18/20 08/19/20 08/20/20 11:59 11:59 11:59 11:59 Intake Total 2270 600 Output Total 500 Balance 1770 600 Weight 90.3 kg 90.3 kg - Lab Result Diagrams: 08/19/20 04:40 08/19/20 04:40 - Procedures and Test Procedures and Tests throughout Hospitalization: Therapy Orders & Screens 08/18/20 22:42 EKG REPEAT IN AM Comment: 08/18/20 23:25 Smoking Cessation Education ONCE Comment: Diagnosis: Suicidal ideation/homicidal ideation Smoking Status: Current every day smoker How long have you smoked: years Have you smoked in the past 12 months: Yes Approximately how many cigarettes per day: 20 Do you dip or chew tobacco: No Discharge Exam General Appearance: no apparent distress, alert Neurologic Exam: oriented x 3, cooperative, other (limited affect; appears depressed) Eye Exam: eyes nml inspection Ears, Nose, Throat Exam: moist mucous membranes Respiratory Exam: normal breath sounds, lungs clear, No crackles/rales, No rhonchi, No wheezing Cardiovascular Exam: regular rate/rhythm, normal heart sounds, No murmur Gastrointestinal/Abdomen Exam: soft, No normal bowel sounds (hypoactive but present), No tenderness, No distention, No mass, No guarding, No rebound Back Exam: normal inspection Extremity Exam: normal inspection, No pedal edema, No swelling Skin Exam: normal color, warm, dry, No rash Final Diagnosis/Problem List - Final Discharge Diagnosis/Problem (1) Depression Current Visit: Yes Status: Chronic Assessment & Plan: Apparently severe; inpatient stay when pt can be placed. Code(s): F32.9 - MAJOR DEPRESSIVE DISORDER, SINGLE EPISODE, UNSPECIFIED (2) Alcohol intoxication Current Visit: Yes Status: Resolved (3) Poor social situation Current Visit: Yes Status: Chronic Assessment & Plan: He apparently lives with his girlfriend but the situation is poor; social welfare administrator to be working on placement after his upcoming inpatient psych stay. Code(s): Z65.9 - PROBLEM RELATED TO UNSPECIFIED PSYCHOSOCIAL CIRCUMSTANCES (4) Homicidal ideation Current Visit: Yes Status: Resolved Code(s): R45.850 - HOMICIDAL IDEATIONS (5) Suicidal ideation Current Visit: Yes Status: Resolved Code(s): R45.851 - SUICIDAL IDEATIONS - Discharge Disposition: Home, Self-Care Condition: Stable Prescriptions: Continue Clopidogrel Bisulfate 75 mg [PLAVIX 75 MG Tablet] 75 mg PO DAILY Carvedilol 3.125 mg [Coreg 3.125 MG] 6.25 mg PO BID Aspirin [Analgesic] 325 mg PO HS Rosuvastatin Calcium [Crestor] 5 mg PO HS Magnesium Oxide 500 mg PO BID Instructions: Alcohol Abuse and Alcoholism (DC), Suicide Prevention Additional Instructions: FOLLOW UP WITH YOUR PREFERRED PROVIDER NEEDED ONCE OUT OF INPATIENT TREATMENT.
[2020-08-20] MEDS: MAG-OX 400 PO SCH (10:17)
[2020-08-20] MEDS: PLAVIX 75 MG Tablet PO SCH (10:18)
[2020-08-20] MEDS: Coreg 6.25 MG PO SCH (10:18)
[2020-08-20 16:08] VITALS: BP 108/64; PULSE 61; O2SAT 100
== END 2020-08-20 18:45 ==
LOC: ED 19:33 → ICU 22:34
PROVIDERS: ADMIT Family Medicine; ATTEND Family Medicine
DX: F32.9 Major depressive disorder, single episode, unspecified (principal); F10.929 Alcohol use, unspecified with intoxication, unspecified; Z65.9 Problem related to unspecified psychosocial circumstances; R45.851 Suicidal ideations; R45.850 Homicidal ideations; Z79.899 Other long term (current) drug therapy; Z79.01 Long term (current) use of anticoagulants; E78.00 Pure hypercholesterolemia, unspecified; I10 Essential (primary) hypertension; Z86.79 Personal history of other diseases of the circulatory system; Z20.828 Contact with and (suspected) exposure to other viral communicable diseases
CPT/HCPCS: 0241U; 36000; 36415; 80053; 80307; 81001; 85025; 90791; 93005; 93268; 96374; 99285; G0378; G0480; Q3014; J2060; A9270-GY

== ENCOUNTER 2023-07-22 02:42 | Emergency (ER) | payer MEDICARE ==
[2023-07-22 02:59] VITALS: TEMP 97.9
--- NOTE | 2023-07-22 03:09 | ERPHSYRPT ---
- History of Present Illness Time Seen by Provider: 07/22/23 02:50 Source: patient Patient Subjective Stated Complaint: States he is an alcoholic and has been a daily drinker for 3 years and is at the ER for help to quit. States, "I don't want to live" but denies any current suicidal or homicidal thoughts. Triage Nursing Assessment: Patient arrived by ambulance. He is alert and rambling. YAO WNL. Skin tone normal. NO SOB. No cough. Physician History: Patient is a 58-year-old male history of clinical depression presents to our ED via EMS for evaluation of suicidal ideation. Patient lives alone. Patient has been several times. History of PA with subsequent 5 vessel CABG approximately 16 years ago. Patient has an AICD. Patient voices that he drinks approximately 30 cans of beer daily. Patient has been drinking excessively for at least 3 years. Patient admits to developing withdrawals within 6 to 8 hours. Patient states he cannot live like this any longer. He has observed his vision to be gradually worsening as well as numbness to both feet. Symptoms are progressive. Symptoms are moderate in intensity. No specific worsening or improving factors. Patient voices no other complaints or concerns at this time. Portions of this note were created with voice recognition technology. There may be grammatical, spelling, punctuation or sound alike errors Timing/Duration: today Severity: moderate Modifying Factors: Improves With: nothing Associated Symptoms: nausea Allergies/Adverse Reactions: morphine Allergy (Verified 07/22/23 02:44) Penicillins Allergy (Verified 07/22/23 02:44) Home Medications: Clopidogrel Bisulfate [PLAVIX Tablet] 75 mg PO DAILY 11/15/11 [History] Atorvastatin Calcium [Lipitor 20MG Tablet] 20 mg PO DAILY 07/22/23 [History] Carvedilol 12.5 mg [Coreg 12.5 mg] 12.5 mg PO BID 07/22/23 [History] Hx Tetanus, Diphtheria Vaccination/Date Given: Yes Hx Influenza Vaccination/Date Given: No Hx Pneumococcal Vaccination/Date Given: No Immunizations Up to Date: Yes Travel Risk - International Travel Have you traveled outside of the country in past 3 weeks: No - Emerging Infectious Disease Are you exhibiting symptoms associated with any current EIDs: No - Review of Systems Constitutional: No Symptoms, No Fever, No Chills Eyes: No Symptoms Ears, Nose, & Throat: No Symptoms Respiratory: No Symptoms, No Cough, No Dyspnea Cardiac: No Symptoms, No Chest Pain, No Edema, No Syncope Abdominal/Gastrointestinal: No Symptoms, No Abdominal Pain, No Nausea, No Vo miting, No Diarrhea Genitourinary Symptoms: No Symptoms, No Dysuria Musculoskeletal: No Symptoms, No Back Pain, No Neck Pain Skin: No Symptoms, No Rash Neurological: No Symptoms, No Dizziness, No Focal Weakness, No Sensory Changes Psychological: No Symptoms Endocrine: No Symptoms Hematologic/Lymphatic: No Symptoms Immunological/Allergic: No Symptoms All Other Systems: Reviewed and Negative - Past Medical History Pertinent Past Medical History: Yes Neurological History: No Pertinent History ENT History: Cataracts Cardiac History: Coronary Artery Disease, High Cholesterol, Hypertension, Myocardial Infarction (PA) Respiratory History: CHF Endocrine Medical History: No Pertinent History Musculoskeletal History: No Pertinent History GI Medical History: Hernia History: No Pertinent History Psycho-Social History: Anxiety, Bipolar, Depression, Panic Disorder Male Reproductive Disorders: No Pertinent History 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 - Past Surgical History Past Surgical History: Yes Neuro Surgical History: No Pertinent History Cardiac: CABG, Cardiac Catheterization, Cardiac Stent, Internal Defibrillator, Pacemaker Respiratory: No Pertinent History Gastrointestinal: Hernia Repair Genitourinary: No Pertinent History Musculoskeletal: No Pertinent History Male Surgical History: No Pertinent History Other Surgical History: ATRIAL PACEMAKER/DEFIBRILLATOR - Social History Smoking Status: Current every day smoker How long have you smoked: 40 years Exposure to second hand smoke: No Drug Use: marijuana Patient Lives Alone: No - Nursing Vital Signs Nursing Vital Signs: Initial Vital Signs Temperature 97.9 F 07/22/23 02:47 Pulse Rate 71 07/22/23 02:47 Respiratory Rate 18 07/22/23 02:47 Blood Pressure 126/81 07/22/23 02:47 O2 Sat by Pulse Oximetry 96 07/22/23 02:47 Pain Scale Pain Intensity 0 - Physical Exam General Appearance: no apparent distress, alert Eye Exam: PERRL/EOMI, eyes nml inspection Ears, Nose, Throat Exam: normal ENT inspection, TMs normal, pharynx normal, moist mucous membranes Neck Exam: normal inspection, non-tender, supple, full range of motion Respiratory Exam: normal breath sounds, lungs clear, airway intact, No respiratory distress Cardiovascular Exam: regular rate/rhythm, normal heart sounds, normal peripheral pulses Gastrointestinal/Abdomen Exam: soft, normal bowel sounds, No tenderness, No mass Back Exam: normal inspection, normal range of motion, No CVA tenderness, No vertebral tenderness Extremity Exam: normal inspection, normal range of motion, pelvis stable Neurologic Exam: alert, oriented x 3, cooperative, normal mood/affect, nml cerebellar function, nml station & gait, sensation nml, No motor deficits Skin Exam: normal color, warm, dry, No rash Lymphatic Exam: No adenopathy SpO2 Interpretation: normal SpO2: 96 O2 Delivery: Room Air - Course Nursing assessment & vital signs reviewed: Yes EKG Interpreted by Me: RATE (70), Sinus Rhythm, NORMAL AXIS, NORMAL INTERVALS Ordered Tests: Active Orders 24 hr Category Date Time Status Laundry Presser STAT Care 07/22/23 03:10 Active EKG-ER Only STAT Care 07/22/23 03:09 Active IV Insertion STAT Care 07/22/23 03:09 Active ACETAMINOPHEN Stat Lab 07/22/23 03:18 Completed CBC W DIFF Stat Lab 07/22/23 03:18 Completed CMP Stat Lab 07/22/23 03:18 Completed ETHYL ALCOHOL Stat Lab 07/22/23 03:18 Completed SALICYLATE Stat Lab 07/22/23 03:18 Completed UA W/RFX UR CULTURE Stat Lab 07/22/23 04:36 Completed Urine Triage Profile Stat Lab 07/22/23 04:36 Completed Medication Summary Generic Name Dose Route Start Last Admin Trade Name Freq PRN Reason Stop Dose Admin Sodium Chloride 1,000 mls @ 999 mls/hr 07/22/23 06:16 07/22/23 06:21 Sodium Chloride 0.9% 1000 Ml IV 07/22/23 07:16 999 mls/hr .Q1H1M STA Administration Discontinued Medications Generic Name Dose Route Start Last Admin Trade Name Freq PRN Reason Stop Dose Admin Sodium Chloride Confirm 07/22/23 06:21 Sodium Chloride 0.9% 1000 Ml Administered 07/22/23 06:22 Dose 1,000 mls @ ud .ROUTE .STK-MED ONE Ondansetron HCl 4 mg 07/22/23 03:09 07/22/23 03:20 Ondansetron Hcl 4 Mg/2 Ml Vial IV 07/22/23 03:10 4 mg STAT ONE Administration Ondansetron HCl Confirm 04/18/24 03:19 Ondansetron Hcl 4 Mg/2 Ml Vial Administered 07/22/23 03:20 Dose 4 mg .ROUTE .K-MED ONE Lab/Rad Data: Laboratory Result Diagrams 07/22/23 03:18 Laboratory Results 07/22/23 07/22/23 07/22/23 Range/Units 04:36 04:36 03:18 WBC (4.0-10.5) x10^3/uL RBC (4.1-5.6) x10^6/uL Hgb (12.5-18.0) g/dL Hct (42-50) % MCV (78-100) fL MCH (26-32) pg MCHC (32-36) g/dL RDW (11.5-14.0) % Plt Count (150-450) x10^3/uL MPV (7.5-11.0) fL Gran % (36.0-66.0) % Immature Gran % (Auto) (0.00-0.4) % Nucleat RBC Rel Count (0.00-0.1) % Eos # (Auto) (0-0.5) x10^3/uL Immature Gran # (Auto) (0.00-0.03) x10^3u/L Absolute Lymphs (auto) (1.0-4.6) x10^3/uL Absolute Monos (auto) (0.0-1.3) x10^3/uL Absolute Nucleated RBC (0.00-0.01) x10^3u/L Lymphocytes % (24.0-44.0) % Monocytes % (0.0-12.0) % Eosinophils % (0.00-5.0) % Basophils % (0.0-0.4) % Absolute Granulocytes (1.4-6.9) x10^3/uL Basophils # (0-0.4) x10^3/uL Glucose Urine Color Yellow (Yellow) Urine Appearance Clear (Clear) Urine pH 5.5 (4.6-8.0) Ur Specific [place] 1.010 (1.005-1.030) Urine Protein Negative (Negative) Urine Glucose (UA) Negative (Negative) mg/dL Urine Ketones Negative (Negative) Urine Blood Negative (Negative) Urine Nitrite Negative (Negative) Urine Bilirubin Negative (Negative) Urine Urobilinogen 0.2 (0.2) mg/dL Ur Leukocyte Esterase Negative (Negative) U Hyaline Cast (Auto) 3-5 A (0-2) /LPF Urine Microscopic RBC 0-2 (0-5) /HPF Urine Microscopic WBC 0-2 (0-5) /HPF Ur Epithelial Cells None Seen (None Seen) /HPF Urine Bacteria None Seen (None Seen) /HPF Urine Culture Reflexed NO (NO) Urine Opiates Level NEGATIVE (NEGATIVE) Ur Methadone NEGATIVE (NEGATIVE) Urine Barbiturates NEGATIVE (NEGATIVE) Ur Phencyclidine (PCP) NEGATIVE (NEGATIVE) Urine Amphetamine NEGATIVE (NEGATIVE) U Benzodiazepine Level NEGATIVE (NEGATIVE) Urine Cocaine NEGATIVE (NEGATIVE) Urine Marijuana (THC) POSITIVE A (NEGATIVE) 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/22/23 07/22/23 Range/Units 03:18 03:18 WBC 7.4 (4.0-10.5) x10^3/uL RBC 4.31 (4.1-5.6) x10^6/uL Hgb 15.8 (12.5-18.0) g/dL Hct 43.7 (42-50) % MCV 101.4 H (78-100) fL MCH 36.7 H (26-32) pg MCHC 36.2 H (32-36) g/dL RDW 11.4 L (11.5-14.0) % Plt Count 116 L (150-450) x10^3/uL MPV 9.0 (7.5-11.0) fL Gran % 54.7 (36.0-66.0) % Immature Gran % (Auto) 0.5 H (0.00-0.4) % Nucleat RBC Rel Count 0.0 (0.00-0.1) % Eos # (Auto) 0.25 (0-0.5) x10^3/uL Immature Gran # (Auto) 0.04 H (0.00-0.03) x10^3u/L Absolute Lymphs (auto) 2.37 (1.0-4.6) x10^3/uL Absolute Monos (auto) 0.66 (0.0-1.3) x10^3/uL Absolute Nucleated RBC 0.00 (0.00-0.01) x10^3u/L Lymphocytes % 32.0 (24.0-44.0) % Monocytes % 8.9 (0.0-12.0) % Eosinophils % 3.4 (0.00-5.0) % Basophils % 0.5 (0.0-0.4) % Absolute Granulocytes 4.04 (1.4-6.9) x10^3/uL Basophils # 0.04 (0-0.4) x10^3/uL 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 Urine Color (Yellow) Urine Appearance (Clear) Urine pH (4.6-8.0) Ur Specific [place] (1.005-1.030) Urine Protein (Negative) Urine Glucose (UA) (Negative) mg/dL Urine Ketones (Negative) Urine Blood (Negative) Urine Nitrite (Negative) Urine Bilirubin (Negative) Urine Urobilinogen (0.2) mg/dL Ur Leukocyte Esterase (Negative) U Hyaline Cast (Auto) (0-2) /LPF Urine Microscopic RBC (0-5) /HPF Urine Microscopic WBC (0-5) /HPF Ur Epithelial Cells (None Seen) /HPF Urine Bacteria (None Seen) /HPF Urine Culture Reflexed (NO) Urine Opiates Level (NEGATIVE) Ur Methadone (NEGATIVE) Urine Barbiturates (NEGATIVE) Ur Phencyclidine (PCP) (NEGATIVE) Urine Amphetamine (NEGATIVE) U Benzodiazepine Level (NEGATIVE) Urine Cocaine (NEGATIVE) Urine Marijuana (THC) (NEGATIVE) Ethyl Alcohol - Progress Progress: improved Progress Note: 58-year-old male presents to our ED via PD for suicidal ideation. Patient has an extensive history of alcohol use. Patient is currently intoxicated. Patient's alcohol level on arrival was 272. Patient will require a second alcohol level to be drawn at 10 AM. [facility] requires alcohol level of 150 or less. However patient advised that he has a history of withdrawal. At this point there is no evidence of withdrawal. We will continue to monitor patient. If patient begins to withdraw prior to his next alcohol lab draw we will admit patient for alcohol withdrawal and consult behavioral health from the floor. Vitals are stable. There is no signs of withdrawal at this time. It is currently the change of shift. Patient will be endorsed to incoming physician for final disposition. Portions of this note were created with voice recognition technology. There may be grammatical, spelling, punctuation or sound alike errors Complexity problem addressed is moderate acute complicated No critical care time Complexity of data reviewed and analyzed is moderate test ordered test reviewed results analyzed and correlated clinically with history and physical exam. Risk of complication and or risk of morbidity/mortality patient management is high as patient will likely require hospitalization if he begins to withdrawal. At this point vitals are stable. We are currently monitoring patient and awaiting for second EtOH lab draw. Plan of care established for shared decision making. No social determinants of health present impede follow-up. Portions of this note were created with voice recognition technology. There may be grammatical, spelling, punctuation or sound alike errors 07/22/23 06:37 Counseled pt/family regarding: lab results, diagnosis - Departure Departure Disposition: Observation Clinical Impression: Marijuana use, Depression, Suicidal ideation, Alcoholism, Hyponatremia Condition: Stable Critical Care Time: No Referrals: SHRUTHI PAPPAS NP [NON-STAFF PHY W/O PRIVILEGES] - Follow up/PCP as directed
[2023-07-22] MEDS ORDERED: Zofran 4 MG/2 ML VIAL ONE (03:19)
[2023-07-22] MEDS: Zofran 4 MG/2 ML VIAL IV ONE (03:20)
[2023-07-22 03:21] LABS: Absolute Neutrophil Ct (ANC) 4.04 x10^3/uL (1.4-6.9); BASOPHIL % 0.5 % (0.0-0.4); Basophil (Absolute #) 0.04 x10^3/uL (0-0.4); Eosinophil % 3.4 % (0.00-5.0); Eosinophil (Absolute #) 0.25 x10^3/uL (0-0.5); Hematocrit 43.7 % (42-50); Hemoglobin 15.8 g/dL (12.5-18.0); IMMATURE GRAN # 0.04 x10^3u/L (0.00-0.03); IMMATURE GRAN % 0.5 % (0.00-0.4); Lymphocyte (Absolute #) 2.37 x10^3/uL (1.0-4.6); Mean Cell Volume 101.4 fL (78-100); Mean Corpuscular Hemoglobin 36.7 pg (26-32); Mean Corpuscular Hgb Concent. 36.2 g/dL (32-36); Monocyte (Absolute #) 0.66 x10^3/uL (0.0-1.3); Monocytes % 8.9 % (0.0-12.0); Neutrophil % 54.7 % (36.0-66.0); Platelet Count 116 x10^3/uL (150-450); Red Blood Count 4.31 x10^6/uL (4.1-5.6); Red Cell Distribution Width 11.4 % (11.5-14.0); White Blood Count 7.4 x10^3/uL (4.0-10.5)
[2023-07-22 04:44] LABS: Appearance Clear (Clear); Bacteria None Seen /HPF (None Seen); Bilirubin Negative (Negative); Blood Negative (Negative); Epithelial Cells None Seen /HPF (None Seen); Glucose, Urine Negative (Negative); Ketones Negative (Negative); Leukocyte Esterase Negative (Negative); Nitrite Negative (Negative); Ph 5.5 (4.6-8.0); Protein,Urine Dip Negative (Negative); RBC 0-2 /HPF (0-5); Urobilinogen 0.2 mg/dL (0.2); WBC 0-2 /HPF (0-5)
[2023-07-22 04:45] LABS: ADD URINE CULTURE? NO (NO)
[2023-07-22 04:53] LABS: Amphetamine,Urine NEGATIVE (NEGATIVE); Barbiturate,Urine NEGATIVE (NEGATIVE); Benzodiazepine,Urine NEGATIVE (NEGATIVE); Cocaine,Urine NEGATIVE (NEGATIVE); Methadone,Urine NEGATIVE (NEGATIVE); Opiate,Urine NEGATIVE (NEGATIVE); PCP,Urine NEGATIVE (NEGATIVE); THC,Urine POSITIVE (NEGATIVE)
[2023-07-22] MEDS ORDERED: Sodium Chloride 0.9% 1000 ML 1,000 ML ONE (06:21)
[2023-07-22] MEDS: Sodium Chloride 0.9% 1000 ML 1,000 ML IV STA (06:21)
[2023-07-22] MEDS: THIAMINE 200 MG/2 ML*** 100 MG, Vitamins For Infusion 10 ML INJECTION*** 10 ML, FOLNATE... IV SCH (07:28)
[2023-07-22] MEDS ORDERED: Ativan 2 MG/1 ML VIAL ONE (16:40)
[2023-07-22] MEDS: Ativan 2 MG/1 ML VIAL IV ONE (16:42)
[2023-07-23] MEDS ORDERED: Ativan 2 MG/1 ML VIAL ONE (05:33)
[2023-07-23] MEDS: Ativan 2 MG/1 ML VIAL IV ONE (05:36)
[2023-07-23 09:58] VITALS: RESP 16
[2023-07-23 11:17] VITALS: BP 134/81; PULSE 62; O2SAT 96
== END 2023-07-23 11:50 ==
LOC: ED 02:42
DX: R45.851 Suicidal ideations (principal); F10.10 Alcohol abuse, uncomplicated; F19.90 Other psychoactive substance use, unspecified, uncomplicated; F32.A Depression, unspecified; I25.10 Atherosclerotic heart disease of native coronary artery without angina pectoris; I10 Essential (primary) hypertension; F17.200 Nicotine dependence, unspecified, uncomplicated; E87.1 Hypo-osmolality and hyponatremia; Z79.01 Long term (current) use of anticoagulants; Z79.899 Other long term (current) drug therapy
CPT/HCPCS: 36000; 36415; 80053; 80143; 80179; 80307; 81001; 82077; 82947; 85025; 90791; 93005; 93041; 96360; 96365; 96374; 96376; 99285; Q3014; J2060; J2405; J3475